=== PATIENT | female | born 1960 | race Caucasian/White ===

== ENCOUNTER 2016-08-22 03:44 | Inpatient (IN) | payer OTHER ==
[~2016-08-22] VITALS: Ht 157.5 cm; Wt 53.0 kg
[2016-08-22] VITALS (19 sets, daily range): BP systolic 68–122; BP diastolic 40–79; PULSE 51–96; RESP 16–18; TEMP 90.3–99; O2SAT 95–100
[~2016-08-22 03:44] MED LIST: ACYC400T PO; BACL20TA PO; DIAZ5TAB PO; HYDR-3580 PO; LISI10TA PO
[2016-08-22 04:06] LABS: I-STAT POTASSIUM 3.4 MMOL/L (3.5-4.9); I-STAT SODIUM 139 MMOL/L (138-146)
[2016-08-22 04:08] LABS: AUTOMATED NEUTROPHIL # 16.2 TH/MM3 (1.8-7.7); BASOPHIL # 0.1 TH/MM3 (0-0.2); BASOPHIL % 0.8 % (0.0-2.0); EOSINOPHIL % 0.1 % (0.0-4.0); HEMATOCRIT 30.5 % (35.0-46.0); LYMPH % 9.2 % (9.0-44.0); LYMPHOCYTE # 1.7 TH/MM3 (1.0-4.8); MEAN CELL VOLUME 88.7 FL (80.0-100.0); MEAN CORPUSCULAR HEMOGLOBIN 30.3 PG (27.0-34.0); MEAN CORPUSCULAR HGB CONC 34.2 % (32.0-36.0); MONO % 3.7 % (0.0-8.0); NEUT % 86.2 % (16.0-70.0); PLATELET COUNT 364 TH/MM3 (150-450); RED BLOOD COUNT 3.44 MIL/MM3 (4.00-5.30); RED CELL DISTRIBUTION WIDTH 14.3 % (11.6-17.2); WHITE BLOOD COUNT 18.7 TH/MM3 (4.0-11.0)
--- NOTE | 2016-08-22 04:08 | RADRPT ---
EXAM DATE/TIME: 08/22/2016 03:40 [facility] COMPARISON: No previous studies available for comparison. INDICATIONS : Trauma, found unresponsive. MEDICAL HISTORY : Unobtainable. SURGICAL HISTORY : Unobtainable. ENCOUNTER: Initial ACUITY: 1 day PAIN SCORE: Non-responsive. LOCATION: Bilateral chest FINDINGS: A single view of the chest demonstrates the lungs to be symmetrically aerated without evidence of mas s, infiltrate or effusion. The cardiomediastinal contours are unremarkable. Osseous structures are intact. Patient is intubated. Endotracheal tube tip is about 1 cm above the chente. CONCLUSION: No acute cardiopulmonary disease demonstrated. Endotracheal tube tip is close to the chente and could be pulled back a centimeter or 2 safely. Stanley Richards MD on August 22, 2016 at 4:06 Board Certified Radiologist. This report was verified electronically.
--- NOTE | 2016-08-22 04:11 | RADRPT ---
EXAM DATE/TIME: 08/22/2016 03:56 [facility] COMPARISON: No previous studies available for comparison. INDICATIONS : Trauma alert; found unresponsive with unknown injury. RADIATION DOSE: 58.55 CTDIvol (mGy) MEDICAL HISTORY : Non-responsive. SURGICAL HISTORY : Non-responsive. ENCOUNTER: Initial ACUITY: 1 day PAIN SCALE: Non-responsive LOCATION: Bilateral cranial TECHNIQUE: Multiple contiguous axial images were obtained of the head. Using automated exposure control and adj ustment of the mA and/or kV according to patient size, radiation dose was kept as low as reasonably a chievable to obtain optimal diagnostic quality images. FINDINGS: CEREBRUM: The ventricles are normal for age. No evidence of midline shift, mass lesion, hemorrhage or acute in farction. No extra-axial fluid collections are seen. POSTERIOR FOSSA: The cerebellum and brainstem are intact. The 4th ventricle is midline. The cerebellopontine angle i s unremarkable. EXTRACRANIAL: Severe and diffuse scalp swelling/hematoma. SKULL: The calvaria is intact. No evidence of skull fracture. CONCLUSION: No bleed or other acute intracranial abnormality. Severe and diffuse scalp swelling/hematoma. Stanley Richards MD on August 22, 2016 at 4:09 Board Certified Radiologist. This report was verified electronically.
[2016-08-22] MEDS: SODIUM CHLOR 0.9% 1000 ML INJ 1,000 ML IV SCH ×5 (04:12→23:07)
[2016-08-22 04:13] LABS: HEMO FLAGS AUTO DIFF
--- NOTE | 2016-08-22 04:13 | PD ---
HPI Chief Complaint: trauma alert Time Seen by Provider: 03:45 Travel History International Travel<30 days: No Contact w/Intl Traveler<30days: No History of Present Illness HPI This is an approximately 59 or 69-year-old woman who is brought to the emergency department after being found down. Initially our department was called for erratic behavior, knocking on different people's doors. When they responded they found the patient slumped over with a GCS of 4, with a large hematoma above her right brow. Unknown medical history. Bystanders unseen Wednesday kind and no her think she does drugs but they're not sure. She was intubated on scene with 20 mg of accommodate and 2 mg of Ativan. [facility] Past Medical History Medical History: Unable to Obtain Allergies-Medications (Allergen,Severity, Reaction): Coded Allergies: UNOBTAINABLE (Unverified , 08/22/16) Review of Systems ROS Limitations: Clinical Condition Physical Exam Narrative GENERAL: Approximately 59-year-old woman, obtunded, intubated. SKIN: Warm and dry. Decreased skin turgor. HEAD: Normocephalic. Right brow hematoma. Some tender bogginess to the posterior scalp. EYES: Pupils equal and round, about 2 mm or so. No scleral icterus. No injection or drainage. ENT: No nasal bleeding or discharge. Mucous membranes pink and moist. NECK: Trachea midline. No step-offs or deformities. CARDIOVASCULAR: Regular rate and rhythm. No murmur appreciated. RESPIRATORY: No accessory muscle use. Clear to auscultation. Breath sounds equal bilaterally. GASTROINTESTINAL: Abdomen soft, non-tender, nondistended. Hepatic and splenic margins not palpable. MUSCULOSKELETAL: No obvious deformities. No edema. Scattered bruises in different ages of healing on the extremities. No obvious bony deformities, tenderness, or other evidence of injury. NEUROLOGICAL: Obtunded, withdraws in all 4 extremities. Data Data Orders I-Stat Profile (08/22/16 03:45) I-Stat Creatinine (08/22/16 03:45) Complete Blood Count With Diff (08/22/16 03:45) Prothrombin Time / Inr (Pt) (08/22/16 03:45) Act Partial Throm Time (Ptt) (08/22/16 03:45) Type And Screen (08/22/16 03:45) Fibrinogen (08/22/16 03:45) Alcohol (Ethanol) (08/22/16 03:45) Red Blood Cells (Rbc) (08/22/16 03:45) Drug Screen, Random Urine (08/22/16 03:45) Chest, Single Ap (08/22/16 03:45) Ct Brain W/O Iv Contrast(Rout) (08/22/16 03:45) Ct Cerv Spine W/O Contrast (08/22/16 03:45) Iv Access Insert/Monitor (08/22/16 03:45) Ecg Monitoring (08/22/16 03:45) Oximetry (08/22/16 03:45) Oxygen Administration (08/22/16 03:45) Arterial Blood Gas (Abg) (08/22/16 ) Consult Aroldo Gts (08/22/16 ) Ct Facial Bones W/O Iv Cont (08/22/16 ) Admit Order (Ed Use Only) (08/22/16 ) MDM Medical Screen Exam Complete: Yes Emergency Medical Condition: Yes Interpretation(s) Chest x-ray and pelvis x-ray were interpreted at the bedside by myself as negative. Differential Diagnosis Head injury, bleed, fracture, intoxication, other Narrative Course Medical decision making 59-year-old woman, found unresponsive with evidence of head trauma, intubated on scene, brought to the emergency department. Probably intoxicated, possible illicit drug use, suspect head injury. Initial radiographs are unremarkable. No evidence of chest or belly injury. CT head and neck were performed, grossly negative. Patient was admitted to the ICU. Trauma Alert - Level One Trauma Alert Level One: Full trauma team activate Time Surgeon Summoned: 03:32 Diagnosis Diagnosis: Primary Impression: Coma Qualified Code: R40.2431 - [place] coma scale total score 3-8, in the field ( EMT or ambulance) Additional Impression: Head injury Qualified Code: S09.90XA - Head injury, initial encounter Vimal Marshall MD Aug 22, 2016 04:12
[2016-08-22] MEDS ORDERED: MISCELLANEOUS NURSING INFORMATION XX SCH ×2 (04:15→09:00)
[2016-08-22] MEDS ORDERED: ENALAPRILAT 1.25 MG/ML VIAL IV PRN (04:15)
[2016-08-22] MEDS ORDERED: ONDANSETRON HCL 4 MG/2 ML VIAL IV PRN (04:15)
[2016-08-22] MEDS ORDERED: SODIUM CHLORIDE 0.9% FLUSH 5 ML FLUSH IVF PRN (04:15)
[2016-08-22] MEDS ORDERED: CHLORHEXIDINE GLUCONATE 2 % 1 PACK (2 CLOTHS) TOP PRN ×2 (04:15→09:00)
--- NOTE | 2016-08-22 04:17 | RADRPT ---
EXAM DATE/TIME: 08/22/2016 03:56 [facility] COMPARISON: No previous studies available for comparison. INDICATIONS : Trauma alert; found unresponsive with unknown injury. RADIATION DOSE: 50.51 CTDIvol (mGy) MEDICAL HISTORY : Non-responsive. SURGICAL HISTORY : Non-responsive. ENCOUNTER: Initial ACUITY: 1 day PAIN SCORE: Non-responsive LOCATION: facial TECHNIQUE: Volumetric scanning of the facial bones was performed. Using automated exposure control and adjustme nt of the mA and/or kV according to patient size, radiation dose was kept as low as reasonably achiev able to obtain optimal diagnostic quality images. FINDINGS: ORBITS: The orbital and infraorbital osseous structures are intact. The retroconal structures have a normal configuration. No radiopaque foreign bodies are seen. NASAL BONE: Mildly comminuted minimally displaced fracturing seen on both sides of the nasal arch including at th e base of the left side of the nasal arch. ZYGOMATIC ARCHES: Symmetric without evidence of fracture. SINUSES: The maxillary, ethmoid and frontal sinuses are intact. No air-fluid levels seen. NASAL CAVITY: The nasal septum is intact and midline. The lacrimal ducts are intact. SOFT TISSUES: No radiopaque foreign bodies seen. No soft-tissue swelling is seen. INTRACRANIAL: No intracranial air seen. CRIBIFORM PLATE: Grossly intact. CONCLUSION: Mildly comminuted fracturing of the nose, minimally displaced. The face is otherwise intact. Stanley Richards MD on August 22, 2016 at 4:14 Board Certified Radiologist. This report was verified electronically.
--- NOTE | 2016-08-22 04:26 | RADRPT ---
EXAM DATE/TIME: 08/22/2016 03:56 [facility] COMPARISON: No previous studies available for comparison. INDICATIONS : Trauma alert; found unresponsive with unknown injury. RADIATION DOSE: 15.28 CTDIvol (mGy) MEDICAL HISTORY : Non-responsive. SURGICAL HISTORY : Non-responsive. ENCOUNTER: Initial ACUITY: 1 day PAIN SCALE: Non-responsive LOCATION: neck TECHNIQUE: Volumetric scanning of the cervical spine was performed. Multiplanar reconstructions in the sagittal, coronal and oblique axial planes were performed. Using automated exposure control and adjustment o f the mA and/or kV according to patient size, radiation dose was kept as low as reasonably achievable to obtain optimal diagnostic quality images. FINDINGS: VERTEBRAE: Normal vertebral body height. ALIGNMENT: No evidence of subluxation. C2-C3: The bony spinal canal is normal in size. No evidence of disc bulge or herniation. The neural forami na are bilaterally patent. C3-C4: The bony spinal canal is normal in size. No evidence of disc bulge or herniation. The neural forami na are bilaterally patent. C4-C5: The bony spinal canal is normal in size. No evidence of disc bulge or herniation. The neural forami na are bilaterally patent. C5-C6: Mild disc space narrowing and a small, broad mainly right paracentral disc osteophyte complex noted w ith mild right-sided uncovertebral degenerative changes. Slight narrowing of the right foramen. C6-C7: The bony spinal canal is normal in size. No evidence of disc bulge or herniation. The neural forami na are bilaterally patent. C7-T1: The bony spinal canal is normal in size. No evidence of disc bulge or herniation. The neural forami na are bilaterally patent. Near the level of the thoracic inlet and several bubbles of gas can be seen in the soft tissues aroun d the right clavicle, nonspecific. Has a right subclavian central line been placed or attempted? No p neumothorax seen of the visualized lung apices. There is mild emphysema noted. CONCLUSION: Intact cervical spine. Stanley Richards MD on August 22, 2016 at 4:19 Board Certified Radiologist. This report was verified electronically.
[2016-08-22 04:36] LABS: APTT (PATIENT) 22.8 SEC (24.3-30.1); PROTHROMBIN TIME - PATIENT 10.7 SEC (9.8-11.6)
[2016-08-22 04:46] LABS: BANDS 14 % (0-6); EOSINOPHILS 1 % (0-4); NEUTROPHIL # MANUAL DIFF 16.6 TH/MM3 (1.8-7.7); POLYS (SEG NEUTROPHILS) 75 % (16-70); WBC DIFF SAMPLE 100
[2016-08-22 04:47] LABS: SCAN/DIFF FINAL DIFF MANUAL
[2016-08-22 04:48] LABS: KERATOCYTES OCC (NORMAL); PLATELET ESTIMATE SMEAR NORMAL (NORMAL); PLATELET MORPHOLOGY NORMAL (NORMAL)
[2016-08-22 04:55] LABS: BLOOD GAS BASE EXCESS -3.6 mmol/L (-2-2); BLOOD GAS CARBOXYHEMOGLOBIN 1.1 % (0-4); BLOOD GAS HCO3 21 mmol/L (22-26); BLOOD GAS O2 HGB SATURATION 98 % (90-100); BLOOD GAS OXYGEN CONTENT 13.5 Vol % (12.0-20.0); BLOOD GAS PCO2 42 mmHg (38-42); BLOOD GAS PO2 312 mmHg (61-120); BLOOD GAS TOTAL HGB 9.3 G/DL (12.0-16.0); TEMP CORR TO 98.6
[2016-08-22 04:56] LABS: CRITICAL VALUE NO; DRAW SITE LT RADIAL; FIO2 60 %; NUMBER OF ARTERIAL PUNCTURES 1; OXYGEN DEVICE VENTILATOR; STAT YES; ULNAR PULSE PRESENT; VENT SETTINGS AC/16/450/PEEP 5
[2016-08-22 04:59] LABS: AMPHETAMINE, URINE NEG (NEG); BARBITURATES, URINE NEG (NEG); COCAINE, URINE NEG (NEG)
[2016-08-22] MEDS: MULTIVITAMIN INJ 10 ML, THIAMINE INJ 100 MG, FOLIC ACID INJ 1 MG in SODIUM CHLORID 0.9%... IV SCH (06:15)
[2016-08-22] MEDS ORDERED: PROPOFOL 1000 MG/100 ML INJ 100 ML ONE (06:58)
[2016-08-22] MEDS: BACITRACIN TOP OINT 15 GM TUBE TOP SCH ×2 (07:34→20:54)
[2016-08-22] MEDS: PANTOPRAZOLE SODIUM 40 MG VIAL IVP SCH (08:11)
[2016-08-22 08:36] LABS: ACETAMINOPHEN 5.1 MCG/ML (10.0-30.0); BICARBONATE 21.4 MEQ/L (21.0-32.0); FREE T4 0.82 NG/DL (0.76-1.46); INDIRECT BILIRUBIN 0.4 MG/DL (0.0-0.8); TOTAL BILIRUBIN ADULT 0.6 MG/DL (0.2-1.0)
[2016-08-22 08:47] LABS: POTASSIUM 2.9 MEQ/L (3.5-5.1)
[2016-08-22] MEDS ORDERED: POTASSIUM CHLOR 20 MEQ PREMIX 100 ML IV PRN (09:00)
[2016-08-22] MEDS ORDERED: SODIUM CHLORIDE 0.9% FLUSH 5 ML FLUSH IV FLUSH PRN (09:00)
[2016-08-22] MEDS ORDERED: ACETAMINOPHEN 325 MG TAB PO PRN (09:00)
[2016-08-22] MEDS ORDERED: MAGNESIUM SULFATE INJ 2 GM in SODIUM CHLORIDE 0.9% INJ 96 ML IV PRN (09:00)
[2016-08-22] MEDS: DOCUSATE SODIUM 50 MG/SENNA 8.6 MG TAB PO SCH ×2 (09:00→20:52)
[2016-08-22] MEDS: SODIUM CHLORIDE 0.9% FLUSH 5 ML FLUSH IV FLUSH SCH ×2 (09:00→20:51)
[2016-08-22] MEDS ORDERED: RESP: ALBUTEROL 2.5 MG/IPRATROPIUM 0.5 MG NEB (PRN) INH (09:00)
[2016-08-22] MEDS ORDERED: MAGNESIUM OXIDE 400 MG TAB PO PRN (09:00)
[2016-08-22] MEDS ORDERED: POTASSIUM PHOSPHATE INJ 30 MMOL in SODIUM CHLOR 0.9% 250 ML INJ 250 ML IV PRN (09:00)
[2016-08-22] MEDS ORDERED: POTASSIUM CL 40 MEQ/30 ML LIQ UDC PO/TUBE PRN ×2 (09:00)
[2016-08-22] MEDS ORDERED: DOCUSATE SODIUM 100 MG CAP PO SCH (09:00)
[2016-08-22] MEDS ORDERED: POTASSIUM PHOSPHATE MONOBASIC 500 MG TAB PO/TUBE PRN (09:00)
[2016-08-22] MEDS ORDERED: POTASSIUM PHOSPHATE MONOBASIC 500 MG TAB PO PRN (09:00)
[2016-08-22] MEDS ORDERED: SODIUM PHOSPHATE INJ 30 MMOL in SODIUM CHLOR 0.9% 250 ML INJ 240 ML IV PRN (09:00)
[2016-08-22] MEDS ORDERED: MAGNESIUM SULFATE INJ 4 GM in SODIUM CHLORIDE 0.9% INJ 92 ML IV PRN (09:00)
[2016-08-22] MEDS ORDERED: DEXTROSE 50% IN WATER 50 ML VIAL(D50) IV PUSH PRN (09:00)
[2016-08-22 09:02] LABS: CKMB 13.8 NG/ML (0.5-3.6)
[2016-08-22] MEDS: RESP: ALBUTEROL 2.5 MG/IPRATROPIUM 0.5 MG NEB (SCH) INH ×3 (09:53→21:29)
[2016-08-22] MEDS ORDERED: HEPARIN SODIUM - SQ 10,000 UNITS/ML VIAL SQ SCH (10:00)
--- NOTE | 2016-08-22 10:48 | RADRPT ---
EXAM DATE/TIME: 08/22/2016 10:23 [facility] COMPARISON: CT BRAIN W/O CONTRAST, August 22, 2016, 3:56. INDICATIONS : Trauma. Unresponsive. MEDICAL HISTORY : Unknown SURGICAL HISTORY : Unknown. Images cleared by Dr Domingo. ENCOUNTER: Initial ACUITY: 1 day PAIN SCORE: 0/10 LOCATION: cranial TECHNIQUE: Multiplanar, multisequence MRI of the brain was performed without contrast. FINDINGS: CEREBRUM: Mcneill white matter differentiation is maintained. The ventricles are normal for age. No evidence of m idline shift, mass lesion, hemorrhage or acute infarction. No extraaxial fluid collections are seen. The pituitary gland and suprasellar cistern are normal in configuration. WHITE MATTER: No significant signal abnormalities are seen in the white matter. POSTERIOR FOSSA: The cerebellum and brainstem are intact. The 4th ventricle is midline. The cerebellopontine angle is unremarkable. The cerebellar tonsils are normal in position. DIFFUSION IMAGING: No focal areas of restricted diffusion are seen. No evidence of acute infarction. EXTRACRANIAL: The visualized portions of the orbits and paranasal sinuses are unremarkable. CONCLUSION: Unremarkable MRI of the brain. Bryce Domingo MD on August 22, 2016 at 10:46 Board Certified Radiologist. This report was verified electronically.
--- NOTE | 2016-08-22 10:49 | HHI.HP ---
[facility] Service Critical Care Medicine Primary Care Physician Admission Diagnosis coma, head injury Diagnosis: Chief Complaint: trauma Travel History International Travel<30 Days: No Contact w/Intl Traveler <30 Da: No History of Present Illness This is a 59yF who was found unresponsive at home with obvious signs of facial trauma. She was brought in as a trauma alert. She has nasal bone fractures by Traumagram, but otherwise negative imaging. She was reportedly 89 degrees F on arrival. She was intubated for GCS 4. Her labs are remarkable for a CK 500, trop 1.2 (normal MB ratio), wbc 18k, UDS +bzd. critical care is consulted for evaluation and management of her acute encephalopathy and hypoxic and hypercarbic resp failure. no additional information can be obtained at this time due to the patient's mental status. Review of Systems ROS Limitations: Clinical Condition, Intubated, Altered Mental Status, Unresponsive Past Family Social History Allergies: Coded Allergies: UNOBTAINABLE (Unverified , 08/22/16) Past Medical History unknown secondary to clinical condition. Past Surgical History unknown secondary to clinical condition. Reported Medications unknown secondary to clinical condition. Active Ordered Medications See MAR Family History unknown secondary to clinical condition. Social History unknown secondary to clinical condition. Physical Exam Vital Signs Vital Signs Date Time Temp Pulse Resp B/P Pulse Ox O2 Delivery O2 Flow Rate FiO2 08/22/16 10:00 80 08/22/16 08:00 30 08/22/16 08:00 87 08/22/16 08:00 100 Mechanical Ventilator 30 08/22/16 07:40 100 30 08/22/16 07:30 80 08/22/16 06:00 64 08/22/16 05:00 100 Mechanical Ventilator 30 08/22/16 05:00 30 08/22/16 04:30 90.3 70 18 122/79 100 08/22/16 04:30 60 08/22/16 04:13 100 60 08/22/16 03:32 100 15.00 100 Physical Exam gen: middle-aged female, unresponsive, on ventilator, critically ill. HEENT: significant facial edema and ecchymoses. orotracheally intubated Neck: no jvd. c-collar in place. trachea midline. Chest: clear to auscultation. mechanically ventilated. equal chest rise CV: normal rate, regular rhythm. no appreciable murmurs Abd: soft, nontender, nondistended. no guarding. Extr: cool to the touch. pallor. distal pulses 2+ Neuro: RASS -4. weakly withdraws to deep nailbed pressure in all 4 extremities. Laboratory Laboratory Tests Test 08/22/16 08/22/16 08/22/16 08/22/16 03:42 03:47 04:30 04:40 Antibody Identification Non-Specific Agglutinin White Blood Count 18.7 Red Blood Count 3.44 Hemoglobin 10.4 Bedside Hemoglobin 10.5 Hematocrit 30.5 Bedside Hematocrit 31.0 Mean Corpuscular Volume 88.7 Mean Corpuscular Hemoglobin 30.3 Mean Corpuscular Hemoglobin 34.2 Concent Red Cell Distribution Width 14.3 Platelet Count 364 Mean Platelet Volume 7.5 Neutrophils (%) (Auto) 86.2 Lymphocytes (%) (Auto) 9.2 Monocytes (%) (Auto) 3.7 Eosinophils (%) (Auto) 0.1 Basophils (%) (Auto) 0.8 Neutrophils # (Auto) 16.2 Lymphocytes # (Auto) 1.7 Monocytes # (Auto) 0.7 Eosinophils # (Auto) 0.0 Basophils # (Auto) 0.1 CBC Comment AUTO DIFF Differential Total Cells 100 Counted Neutrophils % (Manual) 75 Band Neutrophils % 14 Lymphocytes % 9 Monocytes % 1 Eosinophils % 1 Neutrophils # (Manual) 16.6 Differential Comment FINAL DIFF MANUAL Platelet Estimate NORMAL Platelet Morphology Comment NORMAL Keratocytes OCC Prothrombin Time 10.7 Prothromb Time International 1.0 Ratio Activated Partial 22.8 Thromboplast Time Fibrinogen 206 Bedside Sodium 139 Bedside Potassium 3.4 Bedside Chloride 105 Bedside Blood Urea Nitrogen 20 Bedside Creatinine 0.9 Bedside Glucose 198 Ethyl Alcohol Level LESS THAN 3 Blood Type O POSITIVE Antibody Screen POSITIVE Antigen Identification E Antigen - NEGATIVE Crossmatch Leukocyte-Reduced Red Blood Cells Blood Bank Comment Nasal Screen MRSA (PCR) NEGATIVE Urine Opiates Screen NEG Urine Barbiturates Screen NEG Urine Amphetamines Screen NEG Urine Benzodiazepines Screen POS Urine Cocaine Screen NEG Urine Cannabinoids Screen NEG Blood Gas Puncture Site LT RADIAL Blood Gas Patient Temperature 98.6 Blood Gas HCO3 21 Blood Gas Base Excess -3.6 Blood Gas Oxygen Saturation 98 Arterial Blood pH 7.33 Arterial Blood Partial 42 Pressure CO2 Arterial Blood Partial 312 Pressure O2 Arterial Blood Oxygen Content 13.5 Arterial Blood 1.1 Carboxyhemoglobin Arterial Blood Methemoglobin 1.0 Blood Gas Hemoglobin 9.3 Oxygen Delivery Device VENTILATOR Blood Gas Ventilator Setting AC/16/450/PEEP 5 Blood Gas Inspired Oxygen 60 Test 08/22/16 07:43 Sodium Level 144 Potassium Level 2.9 Chloride Level 111 Carbon Dioxide Level 21.4 Anion Gap 12 Blood Urea Nitrogen 15 Creatinine 0.89 Estimat Glomerular Filtration 55 Rate Random Glucose 87 Lactic Acid Level 1.1 Calcium Level 8.0 Total Bilirubin 0.6 Direct Bilirubin 0.2 Indirect Bilirubin 0.4 Aspartate Amino Transf 27 (AST/SGOT) Alanine Aminotransferase 19 (ALT/SGPT) Alkaline Phosphatase 49 Total Creatine Kinase 550 Creatine Kinase MB 13.8 Creatine Kinase MB % 2.5 Troponin I 1.20 Total Protein 5.3 Albumin 3.0 Free Thyroxine 0.82 Thyroid Stimulating Hormone 0.543 3rd Gen Salicylates Level 2.2 Acetaminophen Level 5.1 Result Diagram: 08/22/16 0347 08/22/16 0743 Assessment and Plan Assessment and Plan Assessment: 59yF with obvious facial trauma and severe acute encephalopathy. It is unclear the etiology of the trauma or her encephalopathy. Initially, we will aggressively pursue warming her, as she is currently 33 deg C and this is still low enough for spontaneous VFib arrest. we will pursue warm bladder irrigation, warm blankets, ivf warmer. Once warm, if she is still encephalopathic, we will pursue MRI brain, and if normal, EEG. From a fracture standpoint, she is not stable for operative intervention, and she may not require operative intervention, as her nasal bone fractures may be non-operative - we will consult surgery for their recommendations. She is very critically ill at this time. Plan by Systems: Neuro: Acute encephalopathy, unknown type -- RASS goal -2. -- if the patient arouses and is agitated, we will use propofol for goal RASS. -- q1h neuro checks -- stat MRI once warm. -- if imaging is negative, will order EEG -- UDS 08/22- +bzd -- tylenol, ASA negative. -- etoh negative. Resp: Acute hypoxic and hypercarbic respiratory failure -- continue PRVC -- vent bundle -- hob at 30 degrees -- wean fio2 for goal spo2 > 90% -- does not meet SBT criteria today for mental status. -- low tidal volume ventilation targeting 6cc/kg IBW. CV: Hypotension --likely secondary to dehydration --continue NS at 200cc/hr -- 1L LR bolus now. Renal: Acute Rhabdomyolysis -- trend CK -- continue NS as above. -- Continue zhu for q1h uop and accurate i/o's FEN/GI: Acute protein calorie malnutrition- mild Hypokalemia Dehydration -- NPO for now -- ICU electrolyte protocol -- senna/colace for bowel reg -- daily BMP Heme/ID: Leukocytosis -- likely reactive. no overt infectious etiology suspected at this time -- daily CBC Endo: Life-threatening hypothermia Hyperglycemia of Critical Illness -- place 3-way Zhu catheter -- warm bladder irrigation until core temp 36 -- warm ivf -- place warmer/humidifier on vent -- medium scale SSI, q6h Prophy: DVT: SCDs, SQH GI: protonix 40mg iv q24h Dispo: remain in the ICU. she is very critically ill at this time. Critical care time: 80 minutes, exclusive of procedures. Code Status Full Code Tato Lo MD Aug 22, 2016 10:49
[2016-08-22] MEDS: POTASSIUM CHLOR 20 MEQ PREMIX 100 ML IV PRN ×2 (11:18→12:55)
[2016-08-22] MEDS: INSULIN NovoLIN REGULAR SUPPLEMENTAL SCALE SQ SCH ×3 (12:00→23:07)
--- NOTE | 2016-08-22 12:24 | PD.PROCEDR ---
Procedure Note Procedure Procedure: Arterial Line Placement Right radial arterial line Diagnosis: Acute encephalopathy Indications: Need for beat to beat Hemodynamic monitoring Consent: Consent is deemed emergent or medically necessary Description of the Procedure: The right wrist was prepped and draped sterilely. 1% lidocaine was used for local anesthesia. The pulse was located and a needle was advanced into the artery. A 20 gauge, 12 cm catheter was advanced into the artery using a modified Seldinger technique. The catheter was sutured to the skin and a sterile dressing was applied. The catheter was connected to a pressure transducer and an arterial waveform was noted. There were no immediate complications noted. There was minimal EBL. I personally performed the procedure. Tato Lo MD Aug 22, 2016 12:24
[2016-08-22] MEDS: fentaNYL DRIP 250 ML IV SCH ×2 (12:55→19:00)
[2016-08-22 16:32] LABS: CKMB 11.2 NG/ML (0.5-3.6)
[2016-08-22 17:30] LABS: BICARBONATE 20.3 MEQ/L (21.0-32.0); POTASSIUM 3.8 MEQ/L (3.5-5.1)
[2016-08-22 17:46] LABS: CKMB 10.1 NG/ML (0.5-3.6)
[2016-08-22] MEDS ORDERED: PHENYLEPHRINE INJ 40 MG in DEXTROSE 5% IN WATE 500 ML INJ 496 ML IV SCH ×2 (18:00)
[2016-08-22] MEDS ORDERED: NOREPINEPHRINE-DEXTROSE DRIP 250 ML IV ONE (18:41)
[2016-08-22] MEDS ORDERED: TERBUTALINE INJ 1 MG/ML AMP SQ PRN ×2 (18:45→19:30)
[2016-08-22] MEDS ORDERED: SODIUM CHLOR 0.9% 1000 ML INJ 1,000 ML IV ONE (18:45)
[2016-08-22] MEDS ORDERED: DOPamine INJ PREMIX 500 ML IV SCH (19:30)
[2016-08-22] MEDS ORDERED: Vancomycin Consult Pharmacy 1 EA OTHER SCH (19:30)
[2016-08-22] MEDS ORDERED: VANCOMYCIN INJ 1,000 MG in SODIUM CHLOR 0.9% 250 ML INJ 250 ML IV ONE (19:30)
[2016-08-22] MEDS ORDERED: MIDAZOLAM HCL 5 MG/ML VIAL (1 ML) ONE (19:31)
--- NOTE | 2016-08-22 20:04 | PD.PROCEDR ---
Procedure Note Procedure DATE: 08/22/16 CENTRAL LINE PLACEMENT: Right subclavian vein. INDICATION: Central venous access CONSENT Informed consent for procedure was obtained from patient's mother after discussion of risks, benefits, alternatives. Signed consent is on the chart. DESCRIPTION OF THE PROCEDURE Timeout was performed. The patient was placed in supine position, Trendelenburg. The skin was cleansed with Chloraprep 3. Additional barrier precautions included large sterile drape, sterile gloves, sterile gown, face mask, and hat. 1 % lidocaine was used for local anesthesia. On a single attempt , the vein was accessed with an introducer needle. The guide wire was advanced and the tract was dilated. Using Seldinger technique a 7 Moroccan 20 cm antimicrobial coated triple-lumen catheter was advanced to a depth of 16 centimeters. The guide wire was removed. All ports had good return of dark venous blood and flushed easily with saline. The central line was secured with 2.0 silk. A sterile dressing with antibiotic disc was applied. ESTIMATED BLOOD LOSS: Minimal COMPLICATIONS: No apparent complications. STAT chest x-ray is pending. Brooke Bruce MD Aug 22, 2016 20:04
[2016-08-22 20:12] LABS: BACTERIA, URINE OCC /hpf; BLOOD, URINE SMALL (NEG); GLUCOSE,URINE NEG (NEG); KETONE, URINE TRACE mg/dL (NEG); MUCUS URINE FEW /lpf (OCC); NITRITE,URINE NEG (NEG); PH, URINE 5.5 (5.0-8.5); SQUAMOUS EPITHELIAL CELL URINE <1 /hpf (0-5); URINE COLOR YELLOW (YELLW/STRAW)
[2016-08-22 20:13] LABS: COMMENT (UR) CATH-CULTURE IND; CULTURE IF INDICATED CATH CULTURE IND
[2016-08-22] MEDS: metroNIDAZOLE 500 MG INJ 100 ML IV SCH (20:44)
[2016-08-22] MEDS: CEFEPIME INJ 2,000 MG in SODIUM CHLORIDE 0.9% INJ 100 ML IV SCH (20:44)
--- NOTE | 2016-08-22 20:45 | MH ---
cc: NATASHA CASANOVA MD DATE OF ADMISSION: 08/22/2016 CHIEF COMPLAINT: Trauma alert, found down. ALSO KNOWN : Mariam [id number]. HISTORY OF PRESENT ILLNESS: The patient is a 56-year-old female who presented found down. She was noted to have erratic behavior knocking on different people's door and when they responded, they found her slumped over with a GCS of 4. She had a large hematoma on her eyebrow and multiple abrasions. EMS was notified and at the scene intubated the patient due to the inability to protect the airway. She came to the emergency department. She was hemodynamically stable but was not moving extremities. She was noted to have facial abrasions and hematomas without any other significant deformities. Primary and secondary surveys were completed. the patient was taken to the CT scanner and noted to have nasal bone fractures without any evidence of other abnormality. She was then transferred to the [facility] for further workup and evaluation. PAST MEDICAL HISTORY: Unable to document. PAST SURGICAL HISTORY: Unable to document. MEDICATIONS: Unable to obtain. SOCIAL HISTORY Unable to obtain. FAMILY HISTORY: Unable to obtain. ALLERGIES: Unable to obtain. REVIEW OF SYSTEMS: GENERAL: Unable to obtain. HEAD, EYES, EARS, NOSE, THROAT: Unable to obtain. RESPIRATORY: Unable to obtain. CARDIAC: Unable to obtain. VASCULAR: Unable to obtain. INTEGUMENT: Unable to obtain. MUSCULOSKELETAL: Unable to obtain. NEUROLOGIC: Unable to obtain. PHYSICAL EXAMINATION: GENERAL: The patient is intubated and sedated. VITAL SIGNS: Temperature 97.9, pulse 74, respirations 16, blood pressure 107/59, 100% saturation on 30% FIO2. HEAD, EYES, EARS, NOSE, THROAT: Pupils equal and reactive. Positive hematoma above eye. Multiple abrasions. ET tube in place. NECK: Cervical collar in place. LUNGS: Clear to auscultation bilaterally. Bilateral expansion. HEART: S1-S2, regular rhythm. ABDOMEN: The abdomen is soft, nontender and nondistended. EXTREMITIES: Minor superficial abrasions. SKIN/INTEGUMENT: As above with abrasions. NEUROLOGIC: Unable to obtain a full neurologic exam. GCS of 4T. PSYCHIATRIC: Unable to obtain. LABORATORY AND DIAGNOSTIC DATA: WBCs 18.7, hemoglobin 10.4, hematocrit 30.5, platelets 364,000. Sodium 145, potassium 3.8, CO2 115, BUN 13, creatinine 0.92, lactate 1.1. Toxicology positive for benzodiazepines. IMAGING STUDIES: Reviewed by myself: CT head without evidence of intracranial hemorrhage. There is nasal bone fracture confirmed on CT max/face. Chest x-ray: No acute fracture or normal. Cervical spine CT: Intact No fracture. ASSESSMENT: The patient is a 56-year-old female status post found down trauma alert with acute respiratory failure and nasal bone fractures. PLAN: 1. After full radiologic, clinical and laboratory workup, the patient with above-named concerns including potential closed head injury and altered mental status. Will further review toxicology screen and evaluate this. 2. We will wean sedation medications in an attempt to see if the patient is responsive. 3. The patient is sent to [facility] and the sewing machine bobbin winder has been consulted for ventilatory management. 4. The patient will be NPO. 5. IV fluids. 6. Pain control. 7. Nasal bone fractures will be discussed with plastics if warranted. 8. The cervical collar can be removed. MD ELLIE Nicole/RAMONE /8:18 PM /8:29 PM MTDSara
[2016-08-22] MEDS ORDERED: VANCOMYCIN 500 MG/NS 100 ML IV ONE ×2 (22:00)
--- NOTE | 2016-08-22 22:06 | RADRPT ---
EXAM DATE/TIME: 08/22/2016 20:57 [facility] COMPARISON: CHEST SINGLE AP, August 22, 2016, 3:40. INDICATIONS : Central Line Placement. MEDICAL HISTORY : Unobtainable. SURGICAL HISTORY : Unobtainable. ENCOUNTER: Initial ACUITY: 1 day PAIN SCORE: Non-responsive. LOCATION: Bilateral chest FINDINGS: A single view of the chest demonstrates right central line in superior vena cava. Endotracheal tube i n satisfactory position. NG enters stomach. Basilar dependent opacity likely atelectasis. CONCLUSION: 1. Endotracheal tube and nasogastric tube in satisfactory position. Right central line in superior ve na cava without pneumothorax. Prosper Ignacio MD on August 22, 2016 at 22:04 Board Certified Radiologist. This report was verified electronically.
[2016-08-22] MEDS: NOREPINEPHRINE-DEXTROSE DRIP 250 ML IV SCH (22:22)
[2016-08-22 22:36] LABS: INTERNATIONAL NORMALIZED RATIO 0.9 RATIO; PROTHROMBIN TIME - PATIENT 10.4 SEC (9.8-11.6)
[2016-08-22] MEDS: MIDAZOLAM HCL 2 MG/2 ML VIAL IV PUSH PRN (23:47)
[2016-08-23] VITALS (19 sets, daily range): BP systolic 96–128; BP diastolic 51–72; PULSE 51–116; RESP 16; TEMP 98.4–98.6; O2SAT 96–100
[2016-08-23] MEDS: MIDAZOLAM HCL 2 MG/2 ML VIAL IV PUSH PRN ×7 (00:56→07:37)
[2016-08-23] MEDS: CEFEPIME INJ 2,000 MG in SODIUM CHLORIDE 0.9% INJ 100 ML IV SCH ×3 (02:33→20:28)
[2016-08-23] MEDS: SODIUM CHLOR 0.9% 1000 ML INJ 1,000 ML IV SCH ×3 (02:49→16:49)
[2016-08-23] MEDS: fentaNYL DRIP 250 ML IV SCH ×2 (02:49→14:00)
[2016-08-23] MEDS: NOREPINEPHRINE-DEXTROSE DRIP 250 ML IV SCH ×3 (02:49→13:59)
[2016-08-23] MEDS: RESP: ALBUTEROL 2.5 MG/IPRATROPIUM 0.5 MG NEB (SCH) INH ×4 (03:52→20:26)
[2016-08-23] MEDS: metroNIDAZOLE 500 MG INJ 100 ML IV SCH ×3 (04:00→20:28)
[2016-08-23] MEDS ORDERED: CHLORHEXIDINE GLUCONATE 2 % 1 PACK (2 CLOTHS) TOP SCH (04:00)
[2016-08-23] MEDS: CHLORHEXIDINE GLUCONATE 2 % 1 PACK (2 CLOTHS) TOP SCH (04:00)
[2016-08-23] MEDS: MULTIVITAMIN INJ 10 ML, THIAMINE INJ 100 MG, FOLIC ACID INJ 1 MG in SODIUM CHLORID 0.9%... IV SCH (05:08)
[2016-08-23] MEDS: INSULIN NovoLIN REGULAR SUPPLEMENTAL SCALE SQ SCH ×3 (05:08→17:47)
[2016-08-23 05:24] LABS: AUTOMATED NEUTROPHIL # 6.3 TH/MM3 (1.8-7.7); BASOPHIL % 0.5 % (0.0-2.0); EOSINOPHIL % 0.4 % (0.0-4.0); HEMATOCRIT 21.5 % (35.0-46.0); HEMO FLAGS DIFF FINAL; LYMPHOCYTE # 2.3 TH/MM3 (1.0-4.8); MEAN CELL VOLUME 89.4 FL (80.0-100.0); MEAN CORPUSCULAR HEMOGLOBIN 30.7 PG (27.0-34.0); MEAN CORPUSCULAR HGB CONC 34.4 % (32.0-36.0); MONO % 8.9 % (0.0-8.0); NEUT % 66.2 % (16.0-70.0); PLATELET COUNT 246 TH/MM3 (150-450); RED CELL DISTRIBUTION WIDTH 14.7 % (11.6-17.2); WHITE BLOOD COUNT 9.5 TH/MM3 (4.0-11.0)
[2016-08-23 06:00] LABS: APTT (PATIENT) 27.5 SEC (24.3-30.1); INTERNATIONAL NORMALIZED RATIO 0.9 RATIO; PROTHROMBIN TIME - PATIENT 10.3 SEC (9.8-11.6)
[2016-08-23 06:19] LABS: POTASSIUM 3.4 MEQ/L (3.5-5.1)
[2016-08-23 06:43] LABS: CALCIUM-PROTEIN CORRECTED 8.9 MG/DL (8.5-10.1)
[2016-08-23] MEDS: POTASSIUM CHLOR 40 MEQ PREMIX 100 ML IV PRN (06:44)
[2016-08-23] MEDS: MIDAZOLAM 100 MG/ML INJ 100 ML IV SCH (07:47)
[2016-08-23] MEDS: SODIUM CHLORIDE 0.9% FLUSH 5 ML FLUSH IV FLUSH SCH ×2 (07:48→20:28)
[2016-08-23] MEDS: PANTOPRAZOLE SODIUM 40 MG VIAL IVP SCH (07:48)
[2016-08-23] MEDS: DOCUSATE SODIUM 50 MG/SENNA 8.6 MG TAB PO SCH ×2 (07:48→20:28)
[2016-08-23] MEDS: BACITRACIN TOP OINT 15 GM TUBE TOP SCH ×2 (07:49→20:28)
--- NOTE | 2016-08-23 09:29 | HHI.CCPN ---
Subjective Remarks It is in this patient's best interest to proceed with lumbar puncture as she has unexplained encephalopathy and sepsis and it is imperative to rule out [employer] infection. Unfortunately patient is not capacitated for medical decision-making and we are unable to reach family to provide informed consent. Overall potential benefits outweigh risk. Objective - Vital Signs Date Time Temp Pulse Resp B/P Pulse Ox O2 Delivery O2 Flow Rate FiO2 08/23/16 08:24 100 30 08/23/16 06:00 55 08/23/16 04:00 98.6 16 106/53 08/22/16 19:00 Mechanical Ventilator 08/22/16 03:32 15.00 Intake and Output 08/22/16 08/22/16 08/23/16 08:00 16:00 00:00 Intake Total 1000 ml 3441 ml 2966 ml Output Total 1400 ml 500 ml Balance 1000 ml 2041 ml 2466 ml Result Diagram: 08/23/16 0450 08/23/16 0450 Brooke Bruce MD Aug 23, 2016 09:29
--- NOTE | 2016-08-23 09:37 | HHI.CCPN ---
Subjective Remarks/Hospital Course Hospital Course: This is a 59yF who was found unresponsive at home with obvious signs of facial trauma. She was brought in as a trauma alert. She has nasal bone fractures by Traumagram, but otherwise negative imaging. She was reportedly 89 degrees F on arrival. She was intubated for GCS 4. Her labs are remarkable for a CK 500, trop 1.2 (normal MB ratio), wbc 18k, UDS +bzd. critical care is consulted for evaluation and management of her acute encephalopathy and hypoxic and hypercarbic resp failure. no additional information can be obtained at this time due to the patient's mental status. Subjective: 08/23: persistently encephalopathic. became more hypotensive overnight requiring central venous catheter placement and norepinephrine infusion. review of prior records under a different medical record number show that she had a similar admission 01/2015 and her course at that time was complicated by subglottic stenosis, stridor requiring trach/peg, EF at that point was 25-30% diffusely. At that time also had candidate UTI, enterobacter pna, staph epi bacteremia. Eventually her encephalopathy cleared during that admission. Objective Vital Signs Date Time Temp Pulse Resp B/P Pulse Ox O2 Delivery O2 Flow Rate FiO2 08/23/16 08:24 100 30 08/23/16 06:00 55 08/23/16 04:00 98.6 16 106/53 08/22/16 19:00 Mechanical Ventilator 08/22/16 03:32 15.00 Intake and Output 08/22/16 08/22/16 08/23/16 08:00 16:00 00:00 Intake Total 1000 ml 3441 ml 2966 ml Output Total 1400 ml 500 ml Balance 1000 ml 2041 ml 2466 ml Result Diagram: 08/23/16 0450 08/23/16 0450 Objective Remarks gen: middle-aged female, agitated at times, on ventilator, critically ill. HEENT: significant facial edema and ecchymoses. orotracheally intubated Neck: no jvd. c-collar in place. trachea midline. Chest: clear to auscultation. mechanically ventilated. equal chest rise CV: normal rate, regular rhythm. no appreciable murmurs Abd: soft, nontender, nondistended. no guarding. Extr: cool to the touch. pallor. distal pulses 2+ Neuro: RASS -3 or +1. withdraws to deep nailbed pressure in all 4 extremities. does not follow commands. A/P Assessment and Plan Assessment: 59yF with obvious facial trauma and severe acute encephalopathy. It is unclear the etiology of the trauma or her encephalopathy. Given her clinical decline overnight, we will pursue LP and meningitic coverage with broad spectrum abx. We are unable to reach family at this time, but Dr. Bruce and I agree given the clinical decline and encephalopathy, LP is medically indicated. She is very critically ill at this time. Plan by Systems: Neuro: Acute encephalopathy, unknown type -- RASS goal -2. -- versed, fentanyl for goal RASS -- q1h neuro checks -- MRI 08/22: no acute abnormalities -- EEG pending. -- UDS 08/22- +bzd -- tylenol, ASA negative. -- etoh negative. -- will pursue LP and cover with Vanc/Cefepime/Flagyl, add ampicillin and acyclovir until cultures come back. Resp: Acute hypoxic and hypercarbic respiratory failure -- continue PRVC -- vent bundle -- hob at 30 degrees -- wean fio2 for goal spo2 > 90% -- does not meet SBT criteria today for mental status. -- low tidal volume ventilation targeting 6cc/kg IBW. CV: Hypotension Possible Sepsis --levophed for goal map > 65mmHg --decrease NS to 50cc/hr Renal: Acute Rhabdomyolysis -- resolving. -- continue NS as above. -- Continue zhu for q1h uop and accurate i/o's FEN/GI: Acute protein calorie malnutrition- mild Hypokalemia Dehydration- resolved. -- NPO for now -- ICU electrolyte protocol -- senna/colace for bowel reg -- daily BMP -- hold tube feeding due to vasopressor requirements. Heme/ID: Leukocytosis Sepsis -- Continue Vanc/Cefepime/Flagyl/Ampicillin/Acyclovir for empiric broad spectrum coverage including meningitic coverage -- f/u martell cultures, CSF studies. -- daily CBC Endo: Life-threatening hypothermia- resolved. Hyperglycemia of Critical Illness -- medium scale SSI, q6h Prophy: DVT: SCDs, SQH GI: protonix 40mg iv q24h Dispo: remain in the ICU. she is very critically ill at this time. Critical care time: 56 minutes, exclusive of procedures. Lo,Tato S MD Aug 23, 2016 09:37
[2016-08-23] MEDS: SODIUM CHLORIDE 0.9% IV SCH ×2 (11:20→16:50)
[2016-08-23] MEDS: AMPICILLIN INJ 2,000 MG in SODIUM CHLORIDE 0.9% INJ 100 ML IV SCH ×4 (11:20→22:25)
[2016-08-23] MEDS: ACYCLOVIR IV SCH ×2 (11:20→16:50)
[2016-08-23 11:36] LABS: SUPERNATE COLOR TUBE #1 CLEAR (CLEAR); VOLUME TUBE # 1 1.1 ML
[2016-08-23 11:37] LABS: GROSS BLOOD TUBE #2 0 (0); GROSS BLOOD TUBE #3 TRACE (0); SUPERNATE COLOR TUBE #2 CLEAR (CLEAR); SUPERNATE COLOR TUBE #3 CLEAR (CLEAR)
[2016-08-23 11:38] LABS: CSF LYMPHOCYTES 0 %; CSF NEUTROPHILS 0 %; GROSS BLOOD TUBE #4 0 (0); SUPERNATE COLOR TUBE #4 CLEAR (CLEAR); WBC TUBE #4 0 /MM3 (0-10)
--- NOTE | 2016-08-23 12:50 | EKG ---
Date Performed: 08/22/2016 Time Performed: 20:36:20 PTAGE: 56 years EKG: Sinus bradycardia. Prolonged QT interval Poor R wave progression - probable normal variant Septal and lateral ST-T changes are nonspecific Low QRS voltages in limb leads Borderline ECG NO PREVIOUS TRACING DOCTOR: Nelson Roa Interpretating Date/Time 08/23/2016 12:48:58
--- NOTE | 2016-08-23 13:51 | PD.PROCEDR ---
Procedure Note Procedure Lumbar Puncture Diagnosis: Acute encephalopathy Indications: Acute encephalopathy with leukocytosis, concern for meningitis Consent: Consent is deemed emergent or medically necessary. Dr. Bruce evaluated the patient and agrees with me. Please refer to her note. Anesthesia: 1% lidocaine locally Description of the Procedure: The patient was placed in the supine, left lateral decubitus position. The patient was prepped and draped sterilely. 1% lidocaine was infiltrated subcutaneously. A 20g Quincke needle was inserted into the L3-4 interspace and advanced until CSF was obtained. Opening pressure was obtained. CSF was drained in 4 incremental vials. The needle was removed and a dressing was applied. The patient was returned to the supine position. Instructions were given to remain flat x 2 hours. There were no immediate complications noted. There was minimal EBL. The patient tolerated the procedure well. Opening Pressure: 14 Amount of CSF removed: 7 mL Findings: Clear CSF. I personally performed the procedure. Tato Lo MD Aug 23, 2016 13:51
[2016-08-23] MEDS: VANCOMYCIN 1,000 MG/NS 250 ML IV SCH ×2 (16:49)
[2016-08-24] VITALS (21 sets, daily range): BP systolic 95–161; BP diastolic 50–92; PULSE 77–136; RESP 6–18; TEMP 89.6–100.3; O2SAT 95–100
[2016-08-24] MEDS: ACYCLOVIR IV SCH ×3 (01:07→18:06)
[2016-08-24] MEDS: SODIUM CHLORIDE 0.9% IV SCH ×3 (01:07→18:06)
[2016-08-24] MEDS: MIDAZOLAM 100 MG/ML INJ 100 ML IV SCH (01:11)
[2016-08-24] MEDS: AMPICILLIN INJ 2,000 MG in SODIUM CHLORIDE 0.9% INJ 100 ML IV SCH ×5 (02:04→19:12)
[2016-08-24] MEDS: RESP: ALBUTEROL 2.5 MG/IPRATROPIUM 0.5 MG NEB (SCH) INH ×4 (03:52→20:34)
[2016-08-24] MEDS: metroNIDAZOLE 500 MG INJ 100 ML IV SCH ×3 (03:57→20:06)
[2016-08-24] MEDS: fentaNYL DRIP 250 ML IV SCH (03:57)
[2016-08-24] MEDS: CEFEPIME INJ 2,000 MG in SODIUM CHLORIDE 0.9% INJ 100 ML IV SCH ×3 (03:57→20:06)
[2016-08-24] MEDS: CHLORHEXIDINE GLUCONATE 2 % 1 PACK (2 CLOTHS) TOP SCH (03:58)
[2016-08-24 04:18] LABS: MEAN CELL VOLUME 89.5 FL (80.0-100.0); MEAN CORPUSCULAR HEMOGLOBIN 31.4 PG (27.0-34.0); MEAN CORPUSCULAR HGB CONC 35.2 % (32.0-36.0); PLATELET COUNT 185 TH/MM3 (150-450); RED BLOOD COUNT 2.16 MIL/MM3 (4.00-5.30); RED CELL DISTRIBUTION WIDTH 14.5 % (11.6-17.2); WHITE BLOOD COUNT 8.2 TH/MM3 (4.0-11.0)
[2016-08-24 04:19] LABS: REVIEW FLAG FINAL
[2016-08-24 04:22] LABS: HEMATOCRIT 19.3 % (35.0-46.0)
[2016-08-24] MEDS ORDERED: SODIUM CHLOR 0.9% 250 ML INJ 250 ML IV ONE (04:30)
[2016-08-24 04:38] LABS: BICARBONATE 20.3 MEQ/L (21.0-32.0); POTASSIUM 3.4 MEQ/L (3.5-5.1)
[2016-08-24] MEDS: MULTIVITAMIN INJ 10 ML, THIAMINE INJ 100 MG, FOLIC ACID INJ 1 MG in SODIUM CHLORID 0.9%... IV SCH (05:26)
[2016-08-24] MEDS: INSULIN NovoLIN REGULAR SUPPLEMENTAL SCALE SQ SCH ×4 (05:26→18:00)
[2016-08-24] MEDS: POTASSIUM CHLOR 40 MEQ PREMIX 100 ML IV PRN (05:26)
--- NOTE | 2016-08-24 05:34 | MG ---
cc: CAROLYNE GEORGE Lab No: [id number] Date: 08/23/2016 Age: Sex: F Race: NOTE Hyperventilation not performed. INDICATIONS MRI normal. Erratic behavior. MEDICATIONS Fentanyl. Acyclovir. FINDINGS The recording shows diffuse 5 Hz slowing to 50 microvolts. There are no hemisphere asymmetries. No epileptiform or seizure activity is noted. Photic stimulation was performed without significant posterior driving. Hyperventilation was not performed. IMPRESSION Diffuse 5 Hz slowing consistent with a moderate diffuse encephalopathy. Could be medication effect but no focal abnormalities were noted. No seizure activity was seen. MD JOEL Bethea/BUDDY /10:33 PM /5:29 AM
[2016-08-24] MEDS: NOREPINEPHRINE-DEXTROSE DRIP 250 ML IV SCH (05:35)
[2016-08-24] MEDS: SODIUM CHLORIDE 0.9% FLUSH 5 ML FLUSH IV FLUSH SCH ×2 (10:10→20:06)
[2016-08-24] MEDS: BACITRACIN TOP OINT 15 GM TUBE TOP SCH ×2 (10:11→20:07)
[2016-08-24] MEDS: DOCUSATE SODIUM 50 MG/SENNA 8.6 MG TAB PO SCH ×2 (10:16→20:06)
[2016-08-24] MEDS: PANTOPRAZOLE SODIUM 40 MG VIAL IVP SCH (10:16)
[2016-08-24] MEDS: VANCOMYCIN 1,000 MG/NS 250 ML IV SCH ×2 (10:19)
[2016-08-24] MEDS: SODIUM CHLOR 0.9% 1000 ML INJ 1,000 ML IV SCH (11:23)
[2016-08-24] MEDS ORDERED: methylPREDNISolone SOD SUCC 125 MG/2 ML VIAL IV PUSH ONE (11:30)
--- NOTE | 2016-08-24 11:46 | HHI.CCPN ---
Subjective Remarks/Hospital Course Hospital Course: This is a 59yF who was found unresponsive at home with obvious signs of facial trauma. She was brought in as a trauma alert. She has nasal bone fractures by Traumagram, but otherwise negative imaging. She was reportedly 89 degrees F on arrival. She was intubated for GCS 4. Her labs are remarkable for a CK 500, trop 1.2 (normal MB ratio), wbc 18k, UDS +bzd. critical care is consulted for evaluation and management of her acute encephalopathy and hypoxic and hypercarbic resp failure. no additional information can be obtained at this time due to the patient's mental status. Subjective: 08/23: persistently encephalopathic. became more hypotensive overnight requiring central venous catheter placement and norepinephrine infusion. review of prior records under a different medical record number show that she had a similar admission 01/2015 and her course at that time was complicated by subglottic stenosis, stridor requiring trach/peg, EF at that point was 25-30% diffusely. At that time also had candidate UTI, enterobacter pna, staph epi bacteremia. Eventually her encephalopathy cleared during that admission. 08/24: Patient remains encephalopathic, also remains on 3mcg/min of Levophed. Random cortisol level pending. B12 level 276, replacement ordered. 2U PRBC given for Hb 6.8. No obvious source of bleeding identified. On broad-spectrum antibacterial and antiviral for covering meningitis and encephalitis-continue until cultures are back Objective Vital Signs Date Time Temp Pulse Resp B/P Pulse Ox O2 Delivery O2 Flow Rate FiO2 08/24/16 08:26 100 35 08/24/16 06:42 99.5 88 16 129/71 08/23/16 20:00 Mechanical Ventilator 08/22/16 03:32 15.00 Intake and Output 08/23/16 08/23/16 08/24/16 08:00 16:00 00:00 Intake Total 1650 ml 2548 ml 1406 ml Output Total 275 ml 700 ml 950 ml Balance 1375 ml 1848 ml 456 ml Result Diagram: 08/24/16 0400 08/24/16 0400 Other Results Microbiology Date/Time Procedure Status Source Growth 08/22/16 19:15 Urine Culture - Final Complete Urine Catheterized Urine Escherichia Coli Enterobacter Aerogenes Objective Remarks gen: middle-aged female, agitated intermittently, on ventilator, critically ill. HEENT: significant facial edema and periorbital ecchymoses. orotracheally intubated Neck: no jvd. c-collar in place. trachea midline. Chest: clear to auscultation. mechanically ventilated. Bilateral mild wheezing CV: normal rate, regular rhythm. no appreciable murmurs Abd: soft, nontender, nondistended. no guarding. Extr: cool to the touch. pallor. distal pulses 2+ Neuro: Intermittently agitated. withdraws to deep nailbed pressure in all 4 extremities. does not follow commands. Urinary Catheter: Yes Assessment to: Continue Vascular Central Line Catheter: Yes Assessment to: Continue A/P Assessment and Plan Assessment: 59yF with obvious facial trauma and severe acute encephalopathy. It is unclear the etiology of the trauma or her encephalopathy. Given her clinical decline overnight, we will pursue LP and meningitic coverage with broad spectrum abx. We are unable to reach family at this time, but Dr. Bruce and I agree given the clinical decline and encephalopathy, LP is medically indicated. She is very critically ill at this time. Plan by Systems: Neuro: Acute metabolic encephalopathy -- RASS goal -1. -- versed, fentanyl for goal RASS. Start daily sedation vacation -- q1h neuro checks -- MRI 08/22: no acute abnormalities -- EEG shows moderate encephalopathy -- UDS 08/22- +bzd, tylenol, ASA negative, etoh negative. -- CSF studies not suggestive of meningitis and cover with Vanc/Cefepime/Flagyl , ampicillin and acyclovir until cultures come back. -- I believe her encephalopathy secondary to severe sepsis from UTI, other causes are being ruled out -- Start B12 replacements today Resp: Acute hypoxic and hypercarbic respiratory failure -- continue PRVC, vent bundle. SBT -- HOB at 30 degrees -- wean fio2 for goal spo2 > 90% -- low tidal volume ventilation targeting 6cc/kg IBW. -- Start Solu-Medrol for COPD exacerbation, and temporally for probable adrenal insufficiency CV: Septic shock Hypothermia on presentation --Levophed for goal map > 65mmHg. Wean to DC as tolerated --NS to 50cc/hr Renal: Acute Rhabdomyolysis -- resolving. -- continue NS as above. -- Continue zhu for q1h uop and accurate i/o's FEN/GI: Acute protein calorie malnutrition- mild Hypokalemia Dehydration- resolved. -- NPO for now. If Hb remains stable, start tube feeds in 24 hours -- ICU electrolyte protocol -- senna/colace for bowel reg -- daily BMP -- hold tube feeding due to anemia. Heme/ID: Septic shock UTI Hypothermia on presentation Anemia requiring transfusion Severe B 12 deficiency -- Continue Vanc/Cefepime/Flagyl/Ampicillin/Acyclovir for empiric broad spectrum coverage including meningitic coverage-Consolidate ABX once final cultures are back -- f/u martell cultures, CSF studies. -- daily CBC Endo: Life-threatening hypothermia- resolved. Hyperglycemia of Critical Illness -- medium scale SSI, q6h -- Check random cortisol level stat -- Start Solu-Medrol for COPD exacerbation, and temporally for probable adrenal insufficiency Prophy: DVT: SCDs, SQH-held due to anemia requiring transfusion GI: Protonix 40mg iv q24h Dispo: remain in the ICU. she is very critically ill at this time. Critical care time: 40 minutes, exclusive of procedures. Anoop Angel MD Aug 24, 2016 11:46
[2016-08-24 12:13] LABS: TRANSFERRIN IRON PROFILE 121 MG/DL (200-360)
[2016-08-24] MEDS: CYANOCOBALAMIN 1000 MCG/ML VIAL IM SCH (12:17)
[2016-08-24] MEDS: FERROUS SULFATE 300 MG /5ML UDC PO SCH ×2 (16:59→20:06)
[2016-08-24] MEDS ORDERED: methylPREDNISolone SOD SUCC 125 MG/2 ML VIAL IV PUSH SCH (21:00)
[2016-08-25] VITALS (16 sets, daily range): BP systolic 110–148; BP diastolic 71–88; PULSE 94–110; RESP 7–20; TEMP 97.9–99.6; O2SAT 92–99
[2016-08-25] MEDS: methylPREDNISolone SOD SUCC 125 MG/2 ML VIAL IV PUSH SCH ×2 (00:22→05:16)
[2016-08-25] MEDS: AMPICILLIN INJ 2,000 MG in SODIUM CHLORIDE 0.9% INJ 100 ML IV SCH ×4 (00:39→09:05)
[2016-08-25] MEDS: ACYCLOVIR IV SCH ×3 (01:34→17:11)
[2016-08-25] MEDS: SODIUM CHLORIDE 0.9% IV SCH ×3 (01:34→17:11)
[2016-08-25] MEDS: fentaNYL DRIP 250 ML IV SCH (03:05)
[2016-08-25] MEDS: CHLORHEXIDINE GLUCONATE 2 % 1 PACK (2 CLOTHS) TOP SCH (03:45)
[2016-08-25] MEDS ORDERED: PHARMACY ORDERED LAB XX ONE (03:45)
[2016-08-25] MEDS: RESP: ALBUTEROL 2.5 MG/IPRATROPIUM 0.5 MG NEB (SCH) INH ×4 (03:48→22:00)
[2016-08-25] MEDS: CEFEPIME INJ 2,000 MG in SODIUM CHLORIDE 0.9% INJ 100 ML IV SCH (03:52)
[2016-08-25] MEDS: VANCOMYCIN 1,000 MG/NS 250 ML IV SCH ×2 (03:52)
[2016-08-25 04:50] LABS: AUTOMATED NEUTROPHIL # 9.7 TH/MM3 (1.8-7.7); BASOPHIL % 0.1 % (0.0-2.0); HEMATOCRIT 29.1 % (35.0-46.0); HEMO FLAGS DIFF FINAL; LYMPH % 5.4 % (9.0-44.0); LYMPHOCYTE # 0.6 TH/MM3 (1.0-4.8); MEAN CELL VOLUME 87.5 FL (80.0-100.0); MEAN CORPUSCULAR HEMOGLOBIN 31.2 PG (27.0-34.0); MEAN CORPUSCULAR HGB CONC 35.7 % (32.0-36.0); MONO % 1.4 % (0.0-8.0); NEUT % 93.1 % (16.0-70.0); PLATELET COUNT 206 TH/MM3 (150-450); RED BLOOD COUNT 3.33 MIL/MM3 (4.00-5.30); WHITE BLOOD COUNT 10.4 TH/MM3 (4.0-11.0)
[2016-08-25] MEDS: metroNIDAZOLE 500 MG INJ 100 ML IV SCH ×3 (05:01→21:00)
[2016-08-25 05:06] LABS: ALT (GPT) 24 U/L (10-53); ANION GAP 13 MEQ/L (5-15); AST (GOT) 32 U/L (15-37); BICARBONATE 18.2 MEQ/L (21.0-32.0); BLOOD UREA NITROGEN 14 MG/DL (7-18); CHLORIDE 111 MEQ/L (98-107); GLOMERULAR FILTRATION RATE 78 ML/MIN (>89); MAGNESIUM 1.8 MG/DL (1.5-2.5); POTASSIUM 3.2 MEQ/L (3.5-5.1); SODIUM (NA) 142 MEQ/L (136-145)
[2016-08-25 05:09] LABS: ALKALINE PHOSPHATASE 57 U/L (45-117); TOTAL BILIRUBIN ADULT 0.6 MG/DL (0.2-1.0)
[2016-08-25] MEDS: POTASSIUM CHLOR 40 MEQ PREMIX 100 ML IV PRN (05:17)
--- NOTE | 2016-08-25 05:23 | RADRPT ---
EXAM DATE/TIME: 08/25/2016 03:56 [facility] COMPARISON: CHEST SINGLE AP, August 22, 2016, 20:57. INDICATIONS : Respiratory disease. MEDICAL HISTORY : Unobtainable. SURGICAL HISTORY : Unobtainable. ENCOUNTER: Subsequent ACUITY: 4 - 6 days PAIN SCORE: Non-responsive. LOCATION: Bilateral chest FINDINGS: The cardiac silhouette is enlarged in transverse diameter. There are findings of congestive heart charli lure with interstitial and alveolar opacity bilaterally. This is new when compared with the prior exa m. Small bilateral pleural effusions are identified. CONCLUSION: 1. Cardiomegaly and findings of congestive heart failure. This is new when compared with the prior ex am. Aly Perez MD on August 25, 2016 at 5:22 Board Certified Radiologist. This report was verified electronically.
[2016-08-25] MEDS: INSULIN NovoLIN REGULAR SUPPLEMENTAL SCALE SQ SCH ×4 (06:00→17:18)
[2016-08-25] MEDS: SODIUM CHLOR 0.9% 1000 ML INJ 1,000 ML IV SCH (06:07)
[2016-08-25] MEDS: PANTOPRAZOLE SODIUM 40 MG VIAL IVP SCH (09:05)
[2016-08-25] MEDS: BACITRACIN TOP OINT 15 GM TUBE TOP SCH ×2 (09:06→21:00)
[2016-08-25] MEDS: CYANOCOBALAMIN 1000 MCG/ML VIAL IM SCH (09:06)
[2016-08-25] MEDS: DOCUSATE SODIUM 50 MG/SENNA 8.6 MG TAB PO SCH ×2 (09:06→21:00)
[2016-08-25] MEDS: FERROUS SULFATE 300 MG /5ML UDC PO SCH ×2 (09:06→21:00)
[2016-08-25] MEDS: SODIUM CHLORIDE 0.9% FLUSH 5 ML FLUSH IV FLUSH SCH ×2 (09:06→21:00)
[2016-08-25 10:11] LABS: CF EBV DNA PCR RESULT Negative (Negative); CF EBV SPEC SOURCE CSF (()); CMV PCR SPECIMEN SOURCE CSF (())
[2016-08-25 10:35] LABS: HSV 1,PCR Negative (Negative)
--- NOTE | 2016-08-25 10:43 | HHI.CCPN ---
Subjective Remarks/Hospital Course Hospital Course: This is a 59yF who was found unresponsive at home with obvious signs of facial trauma. She was brought in as a trauma alert. She has nasal bone fractures by Traumagram, but otherwise negative imaging. She was reportedly 89 degrees F on arrival. She was intubated for GCS 4. Her labs are remarkable for a CK 500, trop 1.2 (normal MB ratio), wbc 18k, UDS +bzd. critical care is consulted for evaluation and management of her acute encephalopathy and hypoxic and hypercarbic resp failure. no additional information can be obtained at this time due to the patient's mental status. Subjective: 08/23: persistently encephalopathic. became more hypotensive overnight requiring central venous catheter placement and norepinephrine infusion. review of prior records under a different medical record number show that she had a similar admission 01/2015 and her course at that time was complicated by subglottic stenosis, stridor requiring trach/peg, EF at that point was 25-30% diffusely. At that time also had candidate UTI, enterobacter pna, staph epi bacteremia. Eventually her encephalopathy cleared during that admission. 08/24: Patient remains encephalopathic, also remains on 3mcg/min of Levophed. Random cortisol level pending. B12 level 276, replacement ordered. 2U PRBC given for Hb 6.8. No obvious source of bleeding identified. On broad-spectrum antibacterial and antiviral for covering meningitis and encephalitis-continue until cultures are back 08/25: Narrow abx now that cultures have returned. Extubate. Objective Vital Signs Date Time Temp Pulse Resp B/P Pulse Ox O2 Delivery O2 Flow Rate FiO2 08/25/16 10:00 96 08/25/16 08:13 98 30 08/25/16 08:00 99.0 16 148/79 08/24/16 09:00 Mechanical Ventilator 08/22/16 03:32 15.00 Intake and Output 08/24/16 08/24/16 08/25/16 08:00 16:00 00:00 Intake Total 1299 ml 2046 ml 904 ml Output Total 1100 ml 1650 ml 1100 ml Balance 199 ml 396 ml -196 ml Result Diagram: 08/25/16 0441 08/25/16 0441 Other Results Microbiology Date/Time Procedure Status Source Growth 08/22/16 19:15 Gram Stain - Final Complete Sputum Endotracheal 08/22/16 19:15 Sputum Culture - Final Complete Staphylococcus Aureus Pseudomonas Aeruginosa 08/22/16 19:15 Urine Culture - Final Complete Urine Catheterized Urine Escherichia Coli Enterobacter Aerogenes Objective Remarks gen: agitated middle-aged female. HEENT: significant facial edema and periorbital ecchymoses. orotracheally intubated Neck: no jvd. trachea midline. Chest: clear to auscultation. mechanically ventilated. Bilateral light wheezing CV: normal rate, regular rhythm. no appreciable murmurs, no JVD. Abd: soft, nontender, nondistended. no guarding. Extr: Well perfused. distal pulses 2+ Neuro: Alert. Moves 4 limbs with strength. Tracks with eyes. A/P Assessment and Plan Assessment: 59yF with obvious facial trauma and severe acute encephalopathy. It is unclear the etiology of the trauma or her encephalopathy. Given her clinical decline overnight, we will pursue LP and meningitic coverage with broad spectrum abx. We are unable to reach family at this time, but Dr. Bruce and I agree given the clinical decline and encephalopathy, LP is medically indicated. She is very critically ill at this time. Plan by Systems: Neuro: Acute metabolic encephalopathy -- RASS goal -1. -- versed, fentanyl for goal RASS. Start daily sedation vacation -- q1h neuro checks -- MRI 08/22: no acute abnormalities -- EEG shows moderate encephalopathy -- UDS 08/22- +bzd, tylenol, ASA negative, etoh negative. -- CSF studies not suggestive of meningitis and cover with Vanc/Cefepime/Flagyl , ampicillin and acyclovir until cultures come back. -- I believe her encephalopathy secondary to severe sepsis from UTI, other causes are being ruled out -- Start B12 replacements today Resp: Acute hypoxic and hypercarbic respiratory failure -- continue PRVC, vent bundle. SBT -- HOB at 30 degrees -- wean fio2 for goal spo2 > 90% -- low tidal volume ventilation targeting 6cc/kg IBW. -- d/c Solu-Medrol for COPD exacerbation. CV: Septic shock Hypothermia on presentation --Levophed for goal map > 65mmHg. Wean to DC as tolerated --NS to 50cc/hr Renal: Acute Rhabdomyolysis -- resolving. -- continue NS as above. -- Continue zhu for q1h uop and accurate i/o's FEN/GI: Acute protein calorie malnutrition- mild Hypokalemia Dehydration- resolved. -- NPO for now. If Hb remains stable, start tube feeds in 24 hours -- ICU electrolyte protocol -- senna/colace for bowel reg -- daily BMP -- hold tube feeding due to anemia. - swallow eval. Heme/ID: Septic shock UTI Hypothermia on presentation Anemia requiring transfusion Severe B 12 deficiency -- Continue Vanc/Cefepime/Flagyl/Ampicillin/Acyclovir for empiric broad spectrum coverage including meningitic coverage-Consolidate ABX now to levaquin and ceftriaxone. -- f/u martell cultures, CSF studies. -- daily CBC Endo: Life-threatening hypothermia- resolved. Hyperglycemia of Critical Illness -- medium scale SSI, q6h Prophy: DVT: SCDs, SQH-held due to anemia requiring transfusion GI: Protonix 40mg iv q24h Overall impression: Alert, extubate. Dioni Grubbs MD Aug 25, 2016 10:43
[2016-08-25] MEDS: cefTRIAXone INJ 1,000 MG in SODIUM CHLORIDE 0.9% INJ 100 ML IV SCH (11:37)
[2016-08-25] MEDS: LEVOFLOXACIN 750 MG PREMIX INJ 150 ML IV SCH (11:37)
[2016-08-25] MEDS ORDERED: VANCOMYCIN 1,000 MG/NS 250 ML IV SCH ×2 (16:00)
--- NOTE | 2016-08-25 17:46 | PD.TRANSFR ---
Transfer Summary Admission Date Aug 22, 2016 at 04:05 Transfer Date: Aug 26, 2016 Admitting Diagnosis coma, head injury Diagnoses: (1) Coma Diagnosis: Principal (2) Head injury Diagnosis: Secondary Significant Findings Found down at home with dehydration and probable benzo OD. Coma at first. Intubated, ventilated. Brain CT normal. Substantial scalp bruises and swelling. Awakened 08/25 and extubated without problem 08/25 a.m. Required transfusion, no bleeding source identified. Appears to be chronically debilitated. O X 3, conversant now. Objective Vital Signs Date Time Temp Pulse Resp B/P Pulse Ox O2 Delivery O2 Flow Rate FiO2 08/25/16 16:00 97.9 97 11 141/79 94 08/25/16 12:00 30 08/25/16 10:30 Nasal Cannula 2 Intake and Output 08/24/16 08/24/16 08/25/16 08:00 16:00 00:00 Intake Total 1299 ml 2046 ml 904 ml Output Total 1100 ml 1650 ml 1100 ml Balance 199 ml 396 ml -196 ml Result Diagram: 08/25/16 0441 08/25/16 0441 Other Results Microbiology Date/Time Procedure Status Source Growth 08/22/16 19:15 Gram Stain - Final Complete Sputum Endotracheal 08/22/16 19:15 Sputum Culture - Final Complete Staphylococcus Aureus Pseudomonas Aeruginosa 08/22/16 19:15 Urine Culture - Final Complete Urine Catheterized Urine Escherichia Coli Enterobacter Aerogenes Objective Remarks gen: agitated middle-aged female. HEENT: significant facial edema and periorbital ecchymoses. orotracheally intubated Neck: no jvd. trachea midline. Chest: clear to auscultation. mechanically ventilated. Bilateral light wheezing CV: normal rate, regular rhythm. no appreciable murmurs, no JVD. Abd: soft, nontender, nondistended. no guarding. Extr: Well perfused. distal pulses 2+ Neuro: Alert. Moves 4 limbs with strength. Tracks with eyes. A/P Assessment and Plan Assessment: 59yF with obvious facial trauma and severe acute encephalopathy. It is unclear the etiology of the trauma or her encephalopathy. Given her clinical decline overnight, we will pursue LP and meningitic coverage with broad spectrum abx. We are unable to reach family at this time, but Dr. Bruce and I agree given the clinical decline and encephalopathy, LP is medically indicated. She is very critically ill at this time. Plan by Systems: Neuro: Acute metabolic encephalopathy -- RASS goal -1. -- versed, fentanyl for goal RASS. Start daily sedation vacation -- q1h neuro checks -- MRI 08/22: no acute abnormalities -- EEG shows moderate encephalopathy -- UDS 08/22- +bzd, tylenol, ASA negative, etoh negative. -- CSF studies not suggestive of meningitis and cover with Vanc/Cefepime/Flagyl , ampicillin and acyclovir until cultures come back. -- I believe her encephalopathy secondary to severe sepsis from UTI, other causes are being ruled out -- Start B12 replacements today Resp: Acute hypoxic and hypercarbic respiratory failure -- continue PRVC, vent bundle. SBT -- HOB at 30 degrees -- wean fio2 for goal spo2 > 90% -- low tidal volume ventilation targeting 6cc/kg IBW. -- d/c Solu-Medrol for COPD exacerbation. CV: Septic shock Hypothermia on presentation --Levophed for goal map > 65mmHg. Wean to DC as tolerated --NS to 50cc/hr Renal: Acute Rhabdomyolysis -- resolving. -- continue NS as above. -- Continue zhu for q1h uop and accurate i/o's FEN/GI: Acute protein calorie malnutrition- mild Hypokalemia Dehydration- resolved. -- NPO for now. If Hb remains stable, start tube feeds in 24 hours -- ICU electrolyte protocol -- senna/colace for bowel reg -- daily BMP -- hold tube feeding due to anemia. - swallow eval. Heme/ID: Septic shock UTI Hypothermia on presentation Anemia requiring transfusion Severe B 12 deficiency -- Continue Vanc/Cefepime/Flagyl/Ampicillin/Acyclovir for empiric broad spectrum coverage including meningitic coverage-Consolidate ABX now to levaquin and ceftriaxone. -- f/u martell cultures, CSF studies. -- daily CBC Endo: Life-threatening hypothermia- resolved. Hyperglycemia of Critical Illness -- medium scale SSI, q6h Prophy: DVT: SCDs, SQH-held due to anemia requiring transfusion GI: Protonix 40mg iv q24h Overall impression: Alert, extubate. Dioni Grubbs MD Aug 25, 2016 17:46
[2016-08-25] MEDS ORDERED: oxyCODONE/ACETAMINOPHEN 5 MG/325 MG TAB PO PRN (18:45)
[2016-08-26] VITALS (15 sets, daily range): BP systolic 114–171; BP diastolic 71–97; PULSE 75–119; RESP 12–25; TEMP 98–98.2; O2SAT 91–99
[2016-08-26] MEDS: SODIUM CHLORIDE 0.9% IV SCH ×3 (02:00→18:00)
[2016-08-26] MEDS: ACYCLOVIR IV SCH ×3 (02:00→18:00)
[2016-08-26] MEDS: oxyCODONE/ACETAMINOPHEN 10 MG/325 MG TAB PO PRN ×3 (03:30→13:30)
[2016-08-26] MEDS: CHLORHEXIDINE GLUCONATE 2 % 1 PACK (2 CLOTHS) TOP SCH (04:00)
[2016-08-26] MEDS: SODIUM CHLOR 0.9% 1000 ML INJ 1,000 ML IV SCH (04:53)
[2016-08-26] MEDS: metroNIDAZOLE 500 MG INJ 100 ML IV SCH ×3 (05:00→21:00)
[2016-08-26] MEDS: INSULIN NovoLIN REGULAR SUPPLEMENTAL SCALE SQ SCH ×4 (06:00→18:00)
[2016-08-26 06:13] LABS: HEMATOCRIT 28.3 % (35.0-46.0); MEAN CELL VOLUME 88.6 FL (80.0-100.0); MEAN CORPUSCULAR HEMOGLOBIN 30.2 PG (27.0-34.0); MEAN CORPUSCULAR HGB CONC 34.1 % (32.0-36.0); PLATELET COUNT 243 TH/MM3 (150-450); RED BLOOD COUNT 3.19 MIL/MM3 (4.00-5.30); RED CELL DISTRIBUTION WIDTH 15.9 % (11.6-17.2); REVIEW FLAG FINAL; WHITE BLOOD COUNT 13.7 TH/MM3 (4.0-11.0)
[2016-08-26 06:44] LABS: BICARBONATE 23.8 MEQ/L (21.0-32.0); POTASSIUM 3.3 MEQ/L (3.5-5.1)
[2016-08-26] MEDS: DOCUSATE SODIUM 50 MG/SENNA 8.6 MG TAB PO SCH ×2 (08:30→21:00)
[2016-08-26] MEDS: PANTOPRAZOLE SODIUM 40 MG VIAL IVP SCH (08:30)
[2016-08-26] MEDS: FERROUS SULFATE 300 MG /5ML UDC PO SCH ×2 (08:30→21:00)
[2016-08-26] MEDS: POTASSIUM CHLOR 40 MEQ PREMIX 100 ML IV PRN (08:30)
[2016-08-26] MEDS: CYANOCOBALAMIN 1000 MCG/ML VIAL IM SCH (08:30)
[2016-08-26] MEDS: RESP: ALBUTEROL 2.5 MG/IPRATROPIUM 0.5 MG NEB (SCH) INH (08:46)
[2016-08-26] MEDS: BACITRACIN TOP OINT 15 GM TUBE TOP SCH ×2 (09:00→21:00)
[2016-08-26] MEDS: SODIUM CHLORIDE 0.9% FLUSH 5 ML FLUSH IV FLUSH SCH ×2 (09:00→21:00)
[2016-08-26 10:39] LABS: CSF CRYPTOCOCCUS AG CONF ND (NOT DETECTD)
[2016-08-26] MEDS: LEVOFLOXACIN 750 MG PREMIX INJ 150 ML IV SCH (10:58)
[2016-08-26] MEDS: cefTRIAXone INJ 1,000 MG in SODIUM CHLORIDE 0.9% INJ 100 ML IV SCH (10:59)
[2016-08-26] MEDS ORDERED: LORazepam 2 MG/ML VIAL ONE (11:51)
[2016-08-26] MEDS ORDERED: LORazepam 2 MG/ML VIAL IVP PRN (12:15)
[2016-08-26] MEDS ORDERED: ZIPRASIDONE MESYLATE 20 MG VIAL IM ONE (17:30)
[2016-08-26 17:59] LABS: CALIFORNIA ENCEPH AB IGG <1:4 (()); CALIFORNIA ENCEPH AB IGM <1:4 (()); EAST EQUINE ENCEPH AB IGG <1:4 (()); EAST EQUINE ENCEPH AB IGM <1:4 (()); ST LOUIS ENCEPH AB IGG <1:4 (()); ST LOUIS ENCEPH AB IGM <1:4 (())
[2016-08-26 23:52] LABS: VDRL CSF NON-REACTIVE (())
[2016-08-27] VITALS (14 sets, daily range): BP systolic 123–202; BP diastolic 79–99; PULSE 84–108; RESP 16–20; TEMP 97.7–98.7; O2SAT 93–100
[2016-08-27] MEDS: SODIUM CHLOR 0.9% 1000 ML INJ 1,000 ML IV SCH (00:53)
[2016-08-27] MEDS: SODIUM CHLORIDE 0.9% IV SCH ×3 (02:00→17:57)
[2016-08-27] MEDS: ACYCLOVIR IV SCH ×3 (02:00→17:57)
[2016-08-27] MEDS: oxyCODONE/ACETAMINOPHEN 10 MG/325 MG TAB PO PRN ×6 (02:30→23:09)
[2016-08-27] MEDS ORDERED: PHARMACY ORDERED LAB XX ONE (03:45)
[2016-08-27] MEDS: CHLORHEXIDINE GLUCONATE 2 % 1 PACK (2 CLOTHS) TOP SCH (04:00)
[2016-08-27] MEDS: metroNIDAZOLE 500 MG INJ 100 ML IV SCH ×3 (05:00→22:22)
[2016-08-27 05:03] LABS: HEMATOCRIT 33.4 % (35.0-46.0); MEAN CELL VOLUME 87.8 FL (80.0-100.0); MEAN CORPUSCULAR HEMOGLOBIN 30.2 PG (27.0-34.0); MEAN CORPUSCULAR HGB CONC 34.4 % (32.0-36.0); PLATELET COUNT 305 TH/MM3 (150-450); RED CELL DISTRIBUTION WIDTH 15.7 % (11.6-17.2); REVIEW FLAG FINAL; WHITE BLOOD COUNT 12.5 TH/MM3 (4.0-11.0)
[2016-08-27 05:22] LABS: BICARBONATE 30.7 MEQ/L (21.0-32.0)
[2016-08-27] MEDS: INSULIN NovoLIN REGULAR SUPPLEMENTAL SCALE SQ SCH ×4 (06:00→17:57)
[2016-08-27] MEDS: BACITRACIN TOP OINT 15 GM TUBE TOP SCH ×2 (09:00→21:00)
[2016-08-27] MEDS: CYANOCOBALAMIN 1000 MCG/ML VIAL IM SCH (09:00)
[2016-08-27] MEDS: FERROUS SULFATE 300 MG /5ML UDC PO SCH ×2 (09:00→23:09)
[2016-08-27] MEDS: DOCUSATE SODIUM 50 MG/SENNA 8.6 MG TAB PO SCH ×2 (09:00→21:00)
[2016-08-27] MEDS: PANTOPRAZOLE SODIUM 40 MG VIAL IVP SCH (09:08)
[2016-08-27] MEDS: SODIUM CHLORIDE 0.9% FLUSH 5 ML FLUSH IV FLUSH SCH ×2 (09:08→21:00)
[2016-08-27] MEDS: LEVOFLOXACIN 750 MG PREMIX INJ 150 ML IV SCH (09:08)
[2016-08-27] MEDS: POTASSIUM CHLOR 40 MEQ PREMIX 100 ML IV PRN ×2 (10:01→12:42)
[2016-08-27] MEDS: ZIPRASIDONE MESYLATE 20 MG VIAL IM PRN ×2 (12:41→23:09)
[2016-08-27] MEDS: cefTRIAXone INJ 1,000 MG in SODIUM CHLORIDE 0.9% INJ 100 ML IV SCH (12:42)
--- NOTE | 2016-08-27 13:22 | PD.TRANSFR ---
Transfer Summary Admission Date Aug 22, 2016 at 04:05 Transfer Date: Aug 27, 2016 Admitting Diagnosis coma, head injury Diagnoses: (1) Coma Diagnosis: Principal (2) Head injury Diagnosis: Secondary Transfer Summary/Subjective 08/26: No change. Objective Vital Signs Date Time Temp Pulse Resp B/P Pulse Ox O2 Delivery O2 Flow Rate FiO2 08/27/16 12:00 98.7 96 18 123/79 100 08/26/16 07:57 Nasal Cannula 4.00 08/25/16 12:00 30 Intake and Output 08/26/16 08/26/16 08/27/16 08:00 16:00 00:00 Intake Total 455 ml 645 ml 650 ml Output Total 1450 ml 2900 ml 3700 ml Balance -995 ml -2255 ml -3050 ml Result Diagram: 08/27/1642908/27/16 043 Objective Remarks gen: agitated middle-aged female. HEENT: significant facial edema and periorbital ecchymoses. orotracheally intubated Neck: no jvd. trachea midline. Chest: clear to auscultation. mechanically ventilated. Bilateral light wheezing CV: normal rate, regular rhythm. no appreciable murmurs, no JVD. Abd: soft, nontender, nondistended. no guarding. Extr: Well perfused. distal pulses 2+ Neuro: Alert. Moves 4 limbs with strength. Tracks with eyes. A/P Assessment and Plan Assessment: 59yF with obvious facial trauma and severe acute encephalopathy. It is unclear the etiology of the trauma or her encephalopathy. Given her clinical decline overnight, we will pursue LP and meningitic coverage with broad spectrum abx. We are unable to reach family at this time, but Dr. Bruce and I agree given the clinical decline and encephalopathy, LP is medically indicated. She is very critically ill at this time. Plan by Systems: Neuro: Acute metabolic encephalopathy -- RASS goal -1. -- versed, fentanyl for goal RASS. Start daily sedation vacation -- q1h neuro checks -- MRI 08/22: no acute abnormalities -- EEG shows moderate encephalopathy -- UDS 08/22- +bzd, tylenol, ASA negative, etoh negative. -- CSF studies not suggestive of meningitis and cover with Vanc/Cefepime/Flagyl , ampicillin and acyclovir until cultures come back. -- I believe her encephalopathy secondary to severe sepsis from UTI, other causes are being ruled out -- Start B12 replacements today Resp: Acute hypoxic and hypercarbic respiratory failure -- continue PRVC, vent bundle. SBT -- HOB at 30 degrees -- wean fio2 for goal spo2 > 90% -- low tidal volume ventilation targeting 6cc/kg IBW. -- d/c Solu-Medrol for COPD exacerbation. CV: Septic shock Hypothermia on presentation --Levophed for goal map > 65mmHg. Wean to DC as tolerated --NS to 50cc/hr Renal: Acute Rhabdomyolysis -- resolving. -- continue NS as above. -- Continue zhu for q1h uop and accurate i/o's FEN/GI: Acute protein calorie malnutrition- mild Hypokalemia Dehydration- resolved. -- NPO for now. If Hb remains stable, start tube feeds in 24 hours -- ICU electrolyte protocol -- senna/colace for bowel reg -- daily BMP -- hold tube feeding due to anemia. - swallow eval. Heme/ID: Septic shock UTI Hypothermia on presentation Anemia requiring transfusion Severe B 12 deficiency -- Continue Vanc/Cefepime/Flagyl/Ampicillin/Acyclovir for empiric broad spectrum coverage including meningitic coverage-Consolidate ABX now to levaquin and ceftriaxone. -- f/u martell cultures, CSF studies. -- daily CBC Endo: Life-threatening hypothermia- resolved. Hyperglycemia of Critical Illness -- medium scale SSI, q6h Prophy: DVT: SCDs, SQH-held due to anemia requiring transfusion GI: Protonix 40mg iv q24h Overall impression: Alert, extubate. Dioni Grubbs MD Aug 27, 2016 13:22
[2016-08-28] VITALS (7 sets, daily range): BP systolic 136–158; BP diastolic 73–94; PULSE 80–118; RESP 15–22; TEMP 96.5–98.5; O2SAT 94–96
[2016-08-28] MEDS: ACYCLOVIR IV SCH ×2 (02:21→10:51)
[2016-08-28] MEDS: SODIUM CHLORIDE 0.9% IV SCH ×2 (02:21→10:51)
[2016-08-28 03:53] LABS: VZV PCR RESULT <500 (())
[2016-08-28 03:55] LABS: HEMATOCRIT 36.6 % (35.0-46.0); MEAN CORPUSCULAR HEMOGLOBIN 30.3 PG (27.0-34.0); MEAN CORPUSCULAR HGB CONC 34.4 % (32.0-36.0); PLATELET COUNT 314 TH/MM3 (150-450); RED BLOOD COUNT 4.16 MIL/MM3 (4.00-5.30); RED CELL DISTRIBUTION WIDTH 15.8 % (11.6-17.2); REVIEW FLAG FINAL; WHITE BLOOD COUNT 9.2 TH/MM3 (4.0-11.0)
[2016-08-28] MEDS: CHLORHEXIDINE GLUCONATE 2 % 1 PACK (2 CLOTHS) TOP SCH (04:00)
[2016-08-28 04:10] LABS: BICARBONATE 30.6 MEQ/L (21.0-32.0); POTASSIUM 3.8 MEQ/L (3.5-5.1)
[2016-08-28] MEDS: SODIUM CHLOR 0.9% 1000 ML INJ 1,000 ML IV SCH ×2 (05:13→14:42)
[2016-08-28] MEDS: oxyCODONE/ACETAMINOPHEN 10 MG/325 MG TAB PO PRN ×2 (05:14→09:15)
[2016-08-28] MEDS: metroNIDAZOLE 500 MG INJ 100 ML IV SCH (05:15)
[2016-08-28] MEDS: INSULIN NovoLIN REGULAR SUPPLEMENTAL SCALE SQ SCH ×4 (05:57→16:57)
[2016-08-28] MEDS: LORazepam 2 MG/ML VIAL IVP PRN ×4 (08:16→22:06)
[2016-08-28] MEDS: PANTOPRAZOLE SODIUM 40 MG VIAL IVP SCH (08:16)
[2016-08-28] MEDS: SODIUM CHLORIDE 0.9% FLUSH 5 ML FLUSH IV FLUSH SCH ×2 (08:17→22:08)
[2016-08-28] MEDS: CYANOCOBALAMIN 1000 MCG/ML VIAL IM SCH (08:17)
[2016-08-28] MEDS: DOCUSATE SODIUM 50 MG/SENNA 8.6 MG TAB PO SCH ×2 (08:17→22:07)
[2016-08-28] MEDS: FERROUS SULFATE 300 MG /5ML UDC PO SCH ×2 (09:00→21:00)
[2016-08-28] MEDS: BACITRACIN TOP OINT 15 GM TUBE TOP SCH ×2 (09:00→22:09)
[2016-08-28] MEDS: cefTRIAXone INJ 1,000 MG in SODIUM CHLORIDE 0.9% INJ 100 ML IV SCH (10:51)
[2016-08-28] MEDS: LEVOFLOXACIN 750 MG PREMIX INJ 150 ML IV SCH (10:51)
--- NOTE | 2016-08-28 13:20 | HHI.PR ---
Subjective Remarks F-U head trauma 08/28/16-patient seen and examined; alert and only oriented to self but no to date or place. +agitation. Per Sitter she did eat some Objective Vitals Vital Signs Date Time Temp Pulse Resp B/P Pulse Ox O2 Delivery O2 Flow Rate FiO2 08/28/16 12:00 96.5 118 20 136/81 95 08/28/16 08:00 96.7 90 20 157/90 96 08/28/16 06:44 18 08/28/16 05:22 97.4 106 18 158/87 95 08/28/16 02:00 91 08/28/16 00:00 98.5 84 15 140/83 96 08/28/16 00:00 80 08/27/16 22:00 103 08/27/16 20:28 100 08/27/16 20:00 108 08/27/16 20:00 98.0 108 20 159/99 95 08/27/16 18:00 96 08/27/16 16:00 98.6 97 20 136/98 100 08/27/16 16:00 94 08/27/16 14:00 96 I/O 08/27/16 08/27/16 08/27/16 08/28/16 08/28/16 08/28/16 07:00 15:00 23:00 07:00 15:00 23:00 Intake Total 239 ml 943 ml 638 ml 80 ml Output Total 2450 ml 1650 ml 1400 ml Balance -2211 ml -707 ml -762 ml 80 ml Intake Oral 400 ml 240 ml IV Total 239 ml 543 ml 398 ml 80 ml Output Urine Total 2450 ml 1650 ml 1400 ml Result Diagram: 08/28/16 0330 08/28/16 0330 Imaging Last Impressions Chest X-Ray 08/25/16 0600 Signed Impressions: Service Date/Time: Thursday, August 25, 2016 03:56 - CONCLUSION: 1. Cardiomegaly and findings of congestive heart failure. This is new when compared with the prior exam. Aly Perez MD Head CT 08/22/16 0345 Signed Impressions: Service Date/Time: Monday, August 22, 2016 03:56 - CONCLUSION: No bleed or other acute intracranial abnormality. Severe and diffuse scalp swelling/hematoma. Stanley Richards MD Cervical Spine CT 08/22/16 0345 Signed Impressions: Service Date/Time: Monday, August 22, 2016 03:56 - CONCLUSION: Intact cervical spine. Stanley Richards MD Maxillofacial CT 08/22/16 0000 Signed Impressions: Service Date/Time: Monday, August 22, 2016 03:56 - CONCLUSION: Mildly comminuted fracturing of the nose, minimally displaced. The face is otherwise intact. Stanley Richards MD Brain MRI 08/22/16 0000 Signed Impressions: Service Date/Time: Monday, August 22, 2016 10:23 - CONCLUSION: Unremarkable MRI of the brain. Bryce Domingo MD Objective Remarks GENERAL: NAD with restrains to UEs SKIN: Warm and dry. some facial ecchymoses HEAD: Normocephalic. EYES: No scleral icterus. No injection or drainage. NECK: Supple, trachea midline. No JVD or lymphadenopathy. CARDIOVASCULAR: Tachy Regular rate and rhythm without murmurs, gallops, or rubs. RESPIRATORY: Breath sounds equal bilaterally. No accessory muscle use. GASTROINTESTINAL: Abdomen soft, non-tender, nondistended. MUSCULOSKELETAL: No cyanosis, or edema. BACK: Nontender without obvious deformity. No CVA tenderness. A/P Problem List: (1) Coma ICD Code: R40.20 Status: Acute (2) Head injury ICD Code: S09.90XA Status: Acute Assessment and Plan 56 yrs old female with Acute metabolic encephalopathy-Resolving -- q1h neuro checks -- MRI 08/22: no acute abnormalities -- EEG shows moderate encephalopathy -- UDS 08/22- +bzd, tylenol, ASA negative, etoh negative. -- CSF studies not suggestive of meningitis therefore will d/c Vanc/Cefepime/ Flagyl, ampicillin and acyclovir -- On B12 replacements today -Consult Psychiatry due to acute mood and bizarre behavior UTI: Continue with Levaquin Acute hypoxic and hypercarbic respiratory failure-Resolved DuoNeb PRN Septic shock Hypothermia on presentation --Resolved Acute Rhabdomyolysis-Resolved Acute protein calorie malnutrition- mild Hypokalemia Dehydration- resolved. -- Healthy diet -- senna/Colace for bowel reg Septic shock UTI Hypothermia on presentation Anemia requiring transfusion Severe B 12 deficiency -- d/c Vanc/Cefepime/Flagyl/Ampicillin/Acyclovir. Continue with Levaquin -- martell cultures, CSF studies NTD. Life-threatening hypothermia- resolved. Hyperglycemia of Critical Illness -- medium scale SSI, q6h Prophy: DVT: SCDs, GI: Protonix 40mg iv q24h Problem Qualifiers (1) Coma: Qualified Code: R40.2431 - [place] coma scale total score 3-8, in the field ( EMT or ambulance) (2) Head injury: Qualified Code: S09.90XA - Head injury, initial encounter Bryce Workman MD Aug 28, 2016 13:20 (2) Head injury: Qualified Code: S09.90XA - Head injury, initial encounter Bryce Workman MD Aug 28, 2016 13:20
[2016-08-29] VITALS: BP 138/88; PULSE 90; RESP 20; TEMP 97.6; O2SAT 96
[2016-08-29] MEDS: CHLORHEXIDINE GLUCONATE 2 % 1 PACK (2 CLOTHS) TOP SCH (04:00)
[2016-08-29 05:35] LABS: HEMATOCRIT 35.7 % (35.0-46.0); MEAN CELL VOLUME 88.5 FL (80.0-100.0); MEAN CORPUSCULAR HEMOGLOBIN 30.2 PG (27.0-34.0); MEAN CORPUSCULAR HGB CONC 34.1 % (32.0-36.0); PLATELET COUNT 339 TH/MM3 (150-450); RED BLOOD COUNT 4.04 MIL/MM3 (4.00-5.30); RED CELL DISTRIBUTION WIDTH 15.4 % (11.6-17.2); REVIEW FLAG FINAL; WHITE BLOOD COUNT 12.1 TH/MM3 (4.0-11.0)
[2016-08-29] MEDS: INSULIN NovoLIN REGULAR SUPPLEMENTAL SCALE SQ SCH ×4 (05:37→16:46)
[2016-08-29 06:02] LABS: POTASSIUM 3.6 MEQ/L (3.5-5.1)
[2016-08-29 08:00] VITALS: BP 144/89; PULSE 95; RESP 17; TEMP 97.8; O2SAT 98
[2016-08-29] MEDS: CYANOCOBALAMIN 1000 MCG/ML VIAL IM SCH (09:00)
[2016-08-29] MEDS: FERROUS SULFATE 300 MG /5ML UDC PO SCH ×2 (09:00→20:51)
[2016-08-29] MEDS: BACITRACIN TOP OINT 15 GM TUBE TOP SCH ×2 (09:00→21:00)
--- NOTE | 2016-08-29 09:25 | HHI.PR ---
Subjective Remarks Patient seen for acute encephalopathy and head trauma. Patient is much more cooperative and oriented today. She is alert and oriented. Requesting coffee. Still very vague about the circumstances leading to her fall. She said she just slipped. Wouldn't answer questions about whether or not she took extra medications. Objective Vitals Vital Signs Date Time Temp Pulse Resp B/P Pulse Ox O2 Delivery O2 Flow Rate FiO2 08/29/16 08:00 97.8 95 17 144/89 98 08/29/16 00:00 97.6 90 20 138/88 96 08/28/16 20:00 98.4 99 22 142/94 94 08/28/16 16:00 97.7 86 16 143/73 96 08/28/16 12:00 96.5 118 20 136/81 95 I/O 08/28/16 08/28/16 08/28/16 08/29/16 08/29/16 08/29/16 07:00 15:00 23:00 07:00 15:00 23:00 Intake Total 80 ml 240 ml 476 ml 486 ml 120 ml Output Total 1100 ml 400 ml 450 ml Balance 80 ml -860 ml 76 ml 36 ml 120 ml Intake Oral 240 ml 220 ml 160 ml 120 ml IV Total 80 ml 256 ml 326 ml Output Urine Total 1100 ml 400 ml 450 ml # Bowel Movements 0 0 0 Result Diagram: 08/29/16 0518 08/29/16 0518 Imaging Last Impressions Chest X-Ray 08/25/16 0600 Signed Impressions: Service Date/Time: Thursday, August 25, 2016 03:56 - CONCLUSION: 1. Cardiomegaly and findings of congestive heart failure. This is new when compared with the prior exam. Aly Perez MD Head CT 08/22/16 0345 Signed Impressions: Service Date/Time: Monday, August 22, 2016 03:56 - CONCLUSION: No bleed or other acute intracranial abnormality. Severe and diffuse scalp swelling/hematoma. Stanley Richards MD Cervical Spine CT 08/22/16 0345 Signed Impressions: Service Date/Time: Monday, August 22, 2016 03:56 - CONCLUSION: Intact cervical spine. Stanley Richards MD Maxillofacial CT 08/22/16 0000 Signed Impressions: Service Date/Time: Monday, August 22, 2016 03:56 - CONCLUSION: Mildly comminuted fracturing of the nose, minimally displaced. The face is otherwise intact. Stanley Richards MD Brain MRI 08/22/16 0000 Signed Impressions: Service Date/Time: Monday, August 22, 2016 10:23 - CONCLUSION: Unremarkable MRI of the brain. Bryce Domingo MD Objective Remarks GENERAL: Frail, appear older than stated age in no acute distress. CARDIOVASCULAR: Normal rate and regular rhythm without murmurs, gallops, or rubs. RESPIRATORY: Good respiratory efforts. Breath sounds equal and clear to auscultation bilaterally. GASTROINTESTINAL: Abdomen soft, non-tender, non-distended. Normal active bowel sounds MUSCULOSKELETAL: Extremities without cyanosis, or edema. NEURO: Alert & Oriented x4 to person, place, time, situation. Moves all ext x4 but generally weak. PSYCH: At times tangential. A/P Problem List: (1) Coma ICD Code: R40.20 Status: Acute (2) Head injury ICD Code: S09.90XA Status: Acute Assessment and Plan 56 yrs old female with: Acute metabolic encephalopathy-Resolving. Could be related to medication abuse , ?Benzo. -- UDS 08/22- +bzd, tylenol, ASA negative, etoh negative. -- CSF studies not suggestive of meningitis -- On B12 replacements today - Appreciate psychiatry following for delirium symptoms. Haldol PRN. Wean off restraints. - Consult PT. UTI: Urine grew Escherichia coli and Enterobacter. Continue with Levaquin Acute hypoxic and hypercarbic respiratory failure-Resolved DuoNeb PRN Acute Rhabdomyolysis-Resolved Acute protein calorie malnutrition- mild Hypokalemia Dehydration- resolved. -- Healthy diet -- senna/Colace for bowel reg Prophylaxis: DVT: SCDs, GI: Protonix daily. Problem Qualifiers (1) Coma: Qualified Code: R40.2431 - [place] coma scale total score 3-8, in the field ( EMT or ambulance) (2) Head injury: Qualified Code: S09.90XA - Head injury, initial encounter Lucinda Khalil MD Aug 29, 2016 09:25
--- NOTE | 2016-08-29 10:46 | PD.CONS ---
Provisional Diagnosis Admission Date Aug 22, 2016 at 04:05 [place] I. Delirium r 41.0 History of Present Illness Service Psychiatry Consult Requested By Attending [place] Reason for Consult Assessment post head trauma and behavior Primary Care Physician HPI Patient is a 56-year-old white female who appears as found in a home unconscious for very low [place] Coma Scale was brought to [facility] was intubated assessed urine toxicology positive for benzodiazepines. Patient showing some mild confusion that per attending's note this morning is somewhat resolving. At the present time patient laying quietly in her bed there is a sitter in the room RN present throughout session patient is in soft restraints at this time due to her restless behavior. He should also somewhat diffusely confused does not she isn't [facility] and is and 2016. Though it takes some effort to remember these. She is focusing quite a bit on wanting to go out some of the grass and smoke a cigarette and she also states that she "stinks" and is requesting a shower. Patient vaguely responds to questions related to past mental health history she does acknowledge being seen at [facility] in the past does vaguely acknowledge past psychiatric hospitalizations but is unable to give anything specific about present medications or psychiatric care. She states she lives by herself and has a pet cat. She denies suicidality homicidality voices or visions it appears patient had some agitation yesterday necessitating multiple when necessary's of Ativan. Perhaps small dose of when necessary Haldol might be more beneficial to this lady. In any event at the present time it appears her delirium her altered mental status is slowly resolving. This time she does not meet criteria for acute psychiatric hospitalization. Also recommend the low-dose Haldol on a when necessary basis. Thanks will continue to follow in the myself and Dr. Chandler Review of Systems ROS Limitations: Clinical Condition, Altered Mental Status Except as stated in HPI: all other systems reviewed are Neg Past Family Social History Coded Allergies: ANTIHISTAMINE DRUGS (Verified Allergy, Mild, "SKIN CRAWLS", 08/19/16) Past Medical History Unknown Active Scripts Baclofen 20 Mg Tab20 Mg PO TID PRN (PAIN SCALE 1 TO 10) #90 TAB Ref 3 Prov:Joceline Lee 07/15/16 Lisinopril-Hctz 10-12.5 Mg Tab1 Tab PO BID #30 TAB Ref 3 Prov:Lizbet Francis MD 06/03/16 Reported Medications Hydrocodone-Acetaminophen 7.5-325 mg Tab1 Tab PO DAILY PRN (PAIN) Ref 0 06/03/16 Acyclovir 400 Mg [id number] Mg PO BID Ref 0 06/03/16 Diazepam 5 Mg Tab5 Mg PO DAILY PRN (ANXIETY) Ref 0 06/03/16 Current Medications Medications (Trade) Dose Ordered Sig/Tripp Route Start Time Stop Time Status Last Admin (NS 1000 ml Inj) 1,000 ml @ 50 mls/hr Q20H IV 08/22/16 04:12 08/28/16 14:42 (Zofran Inj) 4 mg Q6H PRN IV 08/22/16 04:15 (Baciguent Oint) 1 applic BID TOP 08/22/16 09:00 08/28/16 22:09 Miscellaneous Information 1 Q361D XX 08/22/16 04:15 08/22/16 04:15 (Chlorhexidine 2% Cloth) Taper DAILY@04 TOP 08/23/16 04:00 08/19/17 03:59 08/27/16 04:00 (Chlorhexidine 2% Cloth) 3 pack UNSCH PRN TOP 08/22/16 04:15 (D50w (Vial) Inj) 25 ml UNSCH PRN IV PUSH 08/22/16 09:00 (NovoLIN R SUPPLEMENTAL SCALE) 1 Q6HR SQ 08/22/16 12:00 (NS Flush) 2 ml UNSCH PRN IV FLUSH 08/22/16 09:00 (NS Flush) 2 ml BID IV FLUSH 08/22/16 09:00 08/28/16 22:08 (Tylenol) 650 mg Q6H PRN PO 08/22/16 09:00 (Sonal-Colace) 2 tab BID PO 08/22/16 09:00 08/28/16 22:07 Heparin Sodium (Porcine) 5000 units 5,000 units Q8H SQ 08/22/16 10:00 Hold 08/22/16 10:00 (Levophed-Dextrose Drip) 250 ml @ 0 mls/hr TITRATE IV 08/22/16 18:45 08/24/16 05:35 Terbutaline Sulfate 1 mg 1 mg UNSCH PRN SQ 08/22/16 18:45 (Versed Inj) 100 ml @ 0 mls/hr TITRATE IV 08/23/16 07:30 08/24/16 01:11 (Vitamin B12 Inj) 1,000 mcg DAILY IM 08/24/16 12:30 09/03/16 12:29 08/28/16 08:17 Ferrous Sulfate 300 mg 300 mg Q12HR PO 08/24/16 16:30 08/27/16 23:09 (Levaquin 750 Mg Premix Inj) 150 ml @ 100 mls/hr Q24H IV 08/25/16 11:00 08/28/16 10:51 (Ativan Inj) 0.5 mg Q2H PRN IVP 08/26/16 12:15 08/28/16 22:06 (Ativan Inj) 0.5 mg Q2H PRN IVP 08/26/16 12:15 08/29/16 02:03 (Geodon Inj) 20 mg Q12H PRN IM 08/26/16 17:30 08/27/16 23:09 (Protonix) 40 mg DAILY PO 08/29/16 09:00 Family History Unknown at this time Social History Patient was by herself his pet cat Patient's Strengths (min. 2) Patient verbal able to access healthcare Physical Exam Please see attending assessments Vital Signs Vital Signs Date Time Temp Pulse Resp B/P Pulse Ox O2 Delivery O2 Flow Rate FiO2 08/29/16 08:00 97.8 95 17 144/89 98 08/26/16 07:57 Nasal Cannula 4.00 08/25/16 12:00 30 I/O 08/28/16 08/28/16 08/29/16 08:00 16:00 00:00 Intake Total 80 ml 240 ml 476 ml Output Total 1100 ml 400 ml Balance 80 ml -860 ml 76 ml Mental Status Examination Alert vaguely diffusely disoriented white female appears somewhat older than stated age on the bed with a somewhat agitated state in soft restraints Appearance Somewhat disheveled Speech: Pressured, Rapid, Tangential Orientation: Person, Place, Date (vague) Memory: Impaired (describe) Thought Process: Linear, Tangential Thought Content: Other (focusing on smoking) Hallucination Type: None (denies) Attention and Concentration: Other (poor) Suicidal Ideation: No Previous Suicide Attempts: No Homicidal Ideation: No Previous Homicide Attempts: No Insight: Poor Judgement: Poor Affect: Other (slight increase range and intensity) Mood: Euthymic, Irritable Motor Activity: Normal gait (patient in bed in restraints) Assessment & Plan Problem List: (1) Delirium ICD Code: R41.0 Assessment & Plan Estimated LOS: days it appears patient's mental status is improving. Would recommend small doses of Haldol as needed for agitation. At this time patient does not meet criteria for acute psychiatric hospitalization. Thanks for consult We will continue to follow Discharge Planning To be determined Stanley Morrow MD Aug 29, 2016 10:46
[2016-08-29 11:41] VITALS: BP 139/80; PULSE 91; RESP 17; TEMP 98.7; O2SAT 100
[2016-08-29] MEDS: LEVOFLOXACIN 750 MG PREMIX INJ 150 ML IV SCH (12:37)
[2016-08-29] MEDS: PANTOPRAZOLE SOD 40 MG DELAYED RELEASE TAB PO SCH (12:38)
[2016-08-29] MEDS: DOCUSATE SODIUM 50 MG/SENNA 8.6 MG TAB PO SCH ×2 (12:38→20:53)
[2016-08-29] MEDS: SODIUM CHLORIDE 0.9% FLUSH 5 ML FLUSH IV FLUSH SCH ×2 (12:39→20:54)
[2016-08-29] MEDS: SODIUM CHLOR 0.9% 1000 ML INJ 1,000 ML IV SCH (12:53)
[2016-08-29 14:00] VITALS: BP 138/87; PULSE 81; RESP 17; TEMP 97.7; O2SAT 95
[2016-08-29] MEDS: LORazepam 2 MG/ML VIAL IVP PRN ×2 (14:55→20:52)
[2016-08-29 20:20] VITALS: BP 145/86; PULSE 83; RESP 18; TEMP 97.3; O2SAT 98
[2016-08-30 00:04] VITALS: BP 133/86; PULSE 83; RESP 18; TEMP 96.3; O2SAT 97
[2016-08-30] MEDS: CHLORHEXIDINE GLUCONATE 2 % 1 PACK (2 CLOTHS) TOP SCH ×2 (04:00→20:56)
[2016-08-30] MEDS: INSULIN NovoLIN REGULAR SUPPLEMENTAL SCALE SQ SCH ×2 (06:00)
[2016-08-30 08:00] VITALS: BP 132/88; PULSE 77; RESP 16; TEMP 95.9; O2SAT 96
[2016-08-30] MEDS: FERROUS SULFATE 300 MG /5ML UDC PO SCH (08:05)
[2016-08-30] MEDS: CYANOCOBALAMIN 1000 MCG/ML VIAL IM SCH (08:05)
[2016-08-30] MEDS: SODIUM CHLOR 0.9% 1000 ML INJ 1,000 ML IV SCH (08:06)
[2016-08-30] MEDS: DOCUSATE SODIUM 50 MG/SENNA 8.6 MG TAB PO SCH ×2 (08:06→20:56)
[2016-08-30] MEDS: PANTOPRAZOLE SOD 40 MG DELAYED RELEASE TAB PO SCH (08:06)
[2016-08-30] MEDS: HALOPERIDOL 2 MG TAB PO PRN ×2 (08:06→13:29)
[2016-08-30] MEDS: SODIUM CHLORIDE 0.9% FLUSH 5 ML FLUSH IV FLUSH SCH ×2 (08:06→20:56)
[2016-08-30] MEDS: BACITRACIN TOP OINT 15 GM TUBE TOP SCH ×2 (08:07→20:57)
[2016-08-30] MEDS: NICOTINE 14 MG/24 HR PATCH TD SCH (11:11)
[2016-08-30 12:00] VITALS: BP 129/77; PULSE 85; RESP 17; TEMP 96.7; O2SAT 96
[2016-08-30 16:00] VITALS: BP 137/81; PULSE 70; RESP 17; TEMP 98.8; O2SAT 98
--- NOTE | 2016-08-30 16:10 | HHI.PR ---
Subjective Remarks Patient seen this morning. She is much more alert, oriented, and cooperative. She would like to get out of bed. Objective Vitals Vital Signs Date Time Temp Pulse Resp B/P Pulse Ox O2 Delivery O2 Flow Rate FiO2 08/30/16 12:00 96.7 85 17 129/77 96 08/30/16 08:00 95.9 77 16 132/88 96 08/30/16 00:04 96.3 83 18 133/86 97 08/29/16 20:20 97.3 83 18 145/86 98 I/O 08/29/16 08/29/16 08/29/16 08/30/16 08/30/16 08/30/16 07:00 15:00 23:00 07:00 15:00 23:00 Intake Total 486 ml 902 ml 370 ml 840 ml 759 ml Output Total 450 ml 400 ml 700 ml 500 ml 400 ml 250 ml Balance 36 ml 502 ml -330 ml 340 ml 359 ml -250 ml Intake Oral 160 ml 480 ml 370 ml 240 ml 500 ml IV Total 326 ml 422 ml 600 ml 259 ml Output Urine Total 450 ml 400 ml 700 ml 500 ml 400 ml 250 ml # Bowel Movements 0 0 2 Result Diagram: 08/29/1651708/29/1618 Objective Remarks GENERAL: Frail, appear older than stated age in no acute distress. CARDIOVASCULAR: Normal rate and regular rhythm without murmurs, gallops, or rubs. RESPIRATORY: Good respiratory efforts. Breath sounds equal and clear to auscultation bilaterally. GASTROINTESTINAL: Abdomen soft, non-tender, non-distended. Normal active bowel sounds MUSCULOSKELETAL: Extremities without cyanosis, or edema. NEURO: Alert & Oriented x4 to person, place, time, situation. Moves all ext x4 but generally weak. PSYCH: Calm today. A/P Problem List: (1) Coma ICD Code: R40.20 Status: Acute (2) Head injury ICD Code: S09.90XA Status: Acute Assessment and Plan 56 yrs old female with: Acute metabolic encephalopathy-Resolving. Could be related to medication abuse , ?Benzo. -- UDS 08/22- +bzd, tylenol, ASA negative, etoh negative. -- CSF studies not suggestive of meningitis -- On B12 replacements today - Appreciate psychiatry following for delirium symptoms. Haldol PRN. Wean off restraints. Discussed with RN to attempt to get patient out of bed. - Consult PT. UTI: Urine grew Escherichia coli and Enterobacter. Patient has been on antibiotics since 08/22. Discontinue antibiotics. Acute hypoxic and hypercarbic respiratory failure-Resolved DuoNeb PRN Acute Rhabdomyolysis-Resolved Acute protein calorie malnutrition- mild Hypokalemia Dehydration- resolved. -- Healthy diet -- senna/Colace for bowel reg Prophylaxis: DVT: SCDs, GI: Protonix daily. Discharge Planning Patient will need placement. Attempt to mobilize her today. Transition her to oral medications. Problem Qualifiers (1) Coma: Qualified Code: R40.2431 - [place] coma scale total score 3-8, in the field ( EMT or ambulance) (2) Head injury: Qualified Code: S09.90XA - Head injury, initial encounter Lucinda Khalil MD Aug 30, 2016 16:10
[2016-08-30] MEDS: LORazepam 1 MG TAB PO PRN (16:58)
[2016-08-30 20:00] VITALS: BP 136/88; PULSE 86; RESP 20; TEMP 97.4; O2SAT 97
[2016-08-30] MEDS: FERROUS SULFATE 325 MG (65 MG ELEMENTAL IRON) TAB PO SCH (20:56)
[2016-08-31] VITALS: BP 128/80; PULSE 82; RESP 20; TEMP 98.2; O2SAT 95
[2016-08-31 08:00] VITALS: BP 138/76; PULSE 80; RESP 12; TEMP 96.7; O2SAT 96
[2016-08-31] MEDS: LORazepam 1 MG TAB PO PRN (08:46)
[2016-08-31] MEDS: SODIUM CHLORIDE 0.9% FLUSH 5 ML FLUSH IV FLUSH SCH (08:47)
[2016-08-31] MEDS: DOCUSATE SODIUM 50 MG/SENNA 8.6 MG TAB PO SCH (08:47)
[2016-08-31] MEDS: NICOTINE 14 MG/24 HR PATCH TD SCH (08:47)
[2016-08-31] MEDS: FERROUS SULFATE 325 MG (65 MG ELEMENTAL IRON) TAB PO SCH (08:47)
[2016-08-31] MEDS: PANTOPRAZOLE SOD 40 MG DELAYED RELEASE TAB PO SCH (08:47)
[2016-08-31] MEDS: BACITRACIN TOP OINT 15 GM TUBE TOP SCH (08:47)
[2016-08-31] MEDS ORDERED: CYANOCOBALAMIN 1,000 MCG TAB PO SCH (09:00)
--- NOTE | 2016-08-31 11:13 | RADRPT ---
EXAM DATE/TIME: 08/22/2016 03:40 [place] COMPARISON: No previous studies available for comparison. INDICATIONS : Trauma, found unresponsive. MEDICAL HISTORY : Unobtainable. SURGICAL HISTORY : Unobtainable. ENCOUNTER: Initial ACUITY: 1 day PAIN SCORE: Non-responsive. LOCATION: Bilateral pelvis FINDINGS: A single frontal view of the pelvis demonstrates no evidence of fracture. The bony pelvic ring is in tact. Bony mineralization is normal. The soft tissues are intact. CONCLUSION: Intact pelvis. Stanley Richards MD on August 22, 2016 at 4:07 Board Certified Radiologist. This report was verified electronically.
--- NOTE | 2016-08-31 11:14 | HHI.DCPOC ---
Discharge Care Plan Diagnosis: (1) Head injury (2) Delirium (3) Coma (4) Tobacco dependence, continuous (5) HTN (hypertension) (6) Rhabdomyolysis (7) Respiratory failure, acute (8) UTI (urinary tract infection) Goals to Promote Your Health * To prevent worsening of your condition and complications * To maintain your health at the optimal level Directions to Meet Your Goals Take your medications as prescribed Follow your dietary instruction Follow activity as directed Keep your appointments as scheduled Take your immunizations and boosters as scheduled If your symptoms worsen call your PCP, if no PCP go to Urgent Care Center or Emergency Room Smoking is Dangerous to Your Health. Avoid second hand smoke Call the 24-hour hour crisis hotline for domestic abuse at Lucinda Khalil MD Aug 31, 2016 11:14
--- NOTE | 2016-08-31 11:16 | HHI.DS ---
Discharge Summary Admission Date Aug 22, 2016 at 04:05 Discharge Date: Aug 31, 2016 Admitting Diagnosis coma, head injury (1) Coma ICD Code: R40.20 Diagnosis: Principal (2) Head injury ICD Code: S09.90XA Diagnosis: Secondary Procedures Intubation and extubation Brief History - From Admission History of present illness from admitting physician This is a 59yF who was found unresponsive at home with obvious signs of facial trauma. She was brought in as a trauma alert. She has nasal bone fractures by Traumagram, but otherwise negative imaging. She was reportedly 89 degrees F on arrival. She was intubated for GCS 4. Her labs are remarkable for a CK 500, trop 1.2 (normal MB ratio), wbc 18k, UDS +bzd. critical care is consulted for evaluation and management of her acute encephalopathy and hypoxic and hypercarbic resp failure. no additional information can be obtained at this time due to the patient's mental status. CBC/BMP: 08/29/16 0518 08/29/16 0518 Significant Findings Laboratory Tests Test 08/29/16 05:18 White Blood Count 12.1 TH/MM3 (4.0-11.0) Mean Platelet Volume 6.7 FL (7.0-11.0) Estimat Glomerular Filtration 73 ML/MIN (>89) Rate Imaging Last Impressions Chest X-Ray 08/25/16 0600 Signed Impressions: Service Date/Time: Thursday, August 25, 2016 03:56 - CONCLUSION: 1. Cardiomegaly and findings of congestive heart failure. This is new when compared with the prior exam. Aly Perez MD Head CT 08/22/16 0345 Signed Impressions: Service Date/Time: Monday, August 22, 2016 03:56 - CONCLUSION: No bleed or other acute intracranial abnormality. Severe and diffuse scalp swelling/hematoma. Stanley Richards MD Cervical Spine CT 08/22/16 0345 Signed Impressions: Service Date/Time: Monday, August 22, 2016 03:56 - CONCLUSION: Intact cervical spine. Stanley Richards MD Pelvis X-Ray 2/11/17 0000 Signed Impressions: Service Date/Time: Monday, August 22, 2016 03:40 - CONCLUSION: Intact pelvis. Stanley Richards MD Maxillofacial CT 08/22/16 Signed Impressions: Service Date/Time: Monday, August 22, 2016 03:56 - CONCLUSION: Mildly comminuted fracturing of the nose, minimally displaced. The face is otherwise intact. Stanley Richards MD Brain MRI 08/22/16 Signed Impressions: Service Date/Time: Monday, August 22, 2016 10:23 - CONCLUSION: Unremarkable MRI of the brain. Bryce Domingo MD PE at Discharge GENERAL: Frail, appear older than stated age in no acute distress. CARDIOVASCULAR: Normal rate and regular rhythm without murmurs, gallops, or rubs. RESPIRATORY: Good respiratory efforts. Breath sounds equal and clear to auscultation bilaterally. GASTROINTESTINAL: Abdomen soft, non-tender, non-distended. Normal active bowel sounds MUSCULOSKELETAL: Extremities without cyanosis, or edema. NEURO: Alert & Oriented x4 to person, place, time, situation. Moves all ext x4 but generally weak. PSYCH: Calm today. Transfer Summary 08/26: No change. Pt update on day of discharge Patient reports that she is feeling great and requested to go home. She feels steady on her feet. She understands the need to avoid sedating medications. Hospital Course 56 yrs old female admitted as a trauma alert after she was found unresponsive probably from a fall due to benzodiazepine abuse. Evaluation and treatment course detailed below: Acute metabolic encephalopathy-Resolved. Could be related to medication abuse, ?Benzo. -- UDS 08/22- +bzd, tylenol, ASA negative, etoh negative. -- CSF studies not suggestive of meningitis --Patient's symptoms resolve and she was back to her baseline and discharged in stable condition. UTI: Urine grew Escherichia coli and Enterobacter. Patient was treated with antibiotics. Acute hypoxic and hypercarbic respiratory secondary to acute encephalopathy. She was intubated and subsequently extubated. Patient was on room air by the time of discharge. Probably has underlying COPD. She was counseled on quitting using tobacco. Acute Rhabdomyolysis-Resolved Hypertension: Continue home medications. Pt Condition on Discharge: Good Discharge Disposition: Discharge Home Discharge Time: <= 30 minutes Discharge Instructions DIET: Follow Instructions for: As Tolerated, No Restrictions Activities you can perform: Regular-No Restrictions Follow up Referrals: Appointment for Follow Up with PCP Continued Medications: Baclofen (Baclofen) 20 Mg Tab 20 MG PO TID PRN PAIN SCALE 1 TO 10 #90 Ref 3 TAB Lisinopril-Hctz (Lisinopril-Hctz) 10-12.5 Mg Tab 1 TAB PO BID Blood Pressure Management #30 Ref 3 TAB Discontinued Medications: Acyclovir (Acyclovir) 400 Mg Tab 400 MG PO BID Mgmt Viral Infection Ref 0 TAB Diazepam (Diazepam) 5 Mg Tab 5 MG PO DAILY PRN ANXIETY Ref 0 TAB Hydrocodone-Acetaminophen (Hydrocodone-Acetaminophen) 7.5-325 mg Tab 1 TAB PO DAILY PRN PAIN Ref 0 TAB Lucinda Khalil MD Aug 31, 2016 11:16
[2016-08-31 12:00] VITALS: BP 137/71; PULSE 93; RESP 17; TEMP 97; O2SAT 98
[2016-08-31 16:00] VITALS: BP 149/71; PULSE 85; RESP 15; TEMP 98.2; O2SAT 99
[2016-09-30] MEDS ORDERED: ROBA500T PO (09:32)
[2016-09-30] MEDS ORDERED: DICL75TA PO (09:33)
[2016-10-14] MEDS ORDERED: ZOVI400T PO (09:29)
[2016-10-14] MEDS ORDERED: METH125I2 IM (09:58)
[2016-10-14] MEDS ORDERED: KETO60IN6 IM (09:58)
== END 2016-08-31 16:02 | disposition home or self-care (01) | DRG 871 ==
LOC: NEPI 03:44 → NEDA 04:05 → EDBD 04:05 → MERGE 04:05 → N03A 04:09 → N07A 08-28 04:35 → N07B 08-30 15:46
PROVIDERS: ADMIT Family Medicine; ATTEND Family Medicine
PROC: 5A1945Z Respiratory Ventilation, 24-96 Consecutive Hours (ICD-10-PCS; principal; 2016-08-22)
PROC: 03HY32Z Insertion of Monitoring Device into Upper Artery, Percutaneous Approach (ICD-10-PCS; 2016-08-22)
PROC: 02HV33Z Insertion of Infusion Device into Superior Vena Cava, Percutaneous Approach (ICD-10-PCS; 2016-08-22)
PROC: 009U3ZX Drainage of Spinal Canal, Percutaneous Approach, Diagnostic (ICD-10-PCS; 2016-08-23)
PROC: 30233N1 Transfusion of Nonautologous Red Blood Cells into Peripheral Vein, Percutaneous Approach (ICD-10-PCS; 2016-08-24)
DX: A41.59 Other Gram-negative sepsis (principal); J96.01 Acute respiratory failure with hypoxia; R65.21 Severe sepsis with septic shock; J96.02 Acute respiratory failure with hypercapnia; R40.20 Unspecified coma; G93.41 Metabolic encephalopathy; M62.82 Rhabdomyolysis; E44.1 Mild protein-calorie malnutrition; J44.1 Chronic obstructive pulmonary disease with (acute) exacerbation; N39.0 Urinary tract infection, site not specified; A41.51 Sepsis due to Escherichia coli [E. coli]; T42.4X1A Poisoning by benzodiazepines, accidental (unintentional), initial encounter; S00.11XA Contusion of right eyelid and periocular area, initial encounter; S02.2XXA Fracture of nasal bones, initial encounter for closed fracture; R40.2432 Glasgow coma scale score 3-8, at arrival to emergency department; E87.6 Hypokalemia; E86.0 Dehydration; R73.9 Hyperglycemia, unspecified; R68.0 Hypothermia, not associated with low environmental temperature; S00.81XA Abrasion of other part of head, initial encounter; D64.9 Anemia, unspecified; E53.8 Deficiency of other specified B group vitamins; W01.0XXA Fall on same level from slipping, tripping and stumbling without subsequent striking against object, initial encounter; I10 Essential (primary) hypertension; Z68.21 Body mass index [BMI] 21.0-21.9, adult; Z78.1 Physical restraint status
CPT/HCPCS: 31500; 36430; 36556; 36600; 70450; 70486; 70551; 71010; 72125; 72170; 80048; 80053; 80076; 80202; 80307; 80320; 80329; 81001; 82140; 82435; 82533; 82550; 82552; 82565; 82607; 82805; 82945; 82947; 82948; 83540; 83550; 83605; 83735; 84132; 84155; 84157; 84295; 84439; 84443; 84484; 84520; 85007; 85018; 85025; 85027; 85384; 85610; 85730; 86077; 86403; 86592; 86651; 86652; 86653; 86654; 86850; 86870; 86900; 86901; 86902; 86920; 86922; 87015; 87040; 87070; 87077; 87086; 87116; 87147; 87186; 87205; 87206; 87497; 87529; 87641; 87799; 89051; 93005; 94002; 94003; 94640; 94664; 95819; 99291; C9113; G0390; G0480; J0133; J0290; J0692; J0696; J1265; J1644; J1956; J2060; J2250; J2930; J3010; J3370; J3411; J3420; J3480; J3486; J7030; J7040; J7050; P9016

== ENCOUNTER → 2017-02-11 | Outpatient (CLI) | payer OTHER ==
[~2017-02-11] MED LIST changes: -ACYC400T PO; -DIAZ5TAB PO; +DICL75TA PO; -HYDR-3580 PO; +ROBA500T PO; +ZOVI400T PO
[2017-02-11 09:06] LABS: HEMATOCRIT 33.7 % (35.0-46.0); MEAN CELL VOLUME 92.8 FL (80.0-100.0); MEAN CORPUSCULAR HEMOGLOBIN 31.3 PG (27.0-34.0); MEAN CORPUSCULAR HGB CONC 33.7 % (32.0-36.0); PLATELET COUNT 304 TH/MM3 (150-450); RED BLOOD COUNT 3.63 MIL/MM3 (4.00-5.30); RED CELL DISTRIBUTION WIDTH 14.6 % (11.6-17.2); REVIEW FLAG FINAL; WHITE BLOOD COUNT 7.1 TH/MM3 (4.0-11.0)
[2017-02-11 09:30] LABS: ALT (GPT) 21 U/L (10-53); ANION GAP 9 MEQ/L (5-15); AST (GOT) 22 U/L (15-37); BICARBONATE 27.2 MEQ/L (21.0-32.0); CHLORIDE 110 MEQ/L (98-107); GLOMERULAR FILTRATION RATE 61 ML/MIN (>89); GLUCOSE,FASTING 90 MG/DL (74-99); POTASSIUM 4.1 MEQ/L (3.5-5.1); SODIUM (NA) 146 MEQ/L (136-145)
[2017-02-11 09:31] LABS: ALKALINE PHOSPHATASE 76 U/L (45-117); LDL CHOLESTEROL 114 MG/DL (0-99); TOTAL BILIRUBIN ADULT 0.3 MG/DL (0.2-1.0)
[2017-02-11 09:33] LABS: BLOOD UREA NITROGEN 6 MG/DL (7-18)
== END ==
LOC: CLAB 08:14
PROVIDERS: ATTEND Nurse Practitioner Family
DX: I10 Essential (primary) hypertension (principal); E78.5 Hyperlipidemia, unspecified
CPT/HCPCS: 36415; 80053; 80061; 84443; 85027